=== PATIENT | male | born 1960 | race African-American/Black ===

== ENCOUNTER 2018-09-06 17:46 | Inpatient (IN) | payer OTHER ==
[~2018-09-06] VITALS: Ht 185.4 cm; Wt 86.2 kg
--- NOTE | 2018-09-06 17:43 | Emergency Room Report ---
History of Present Illness General Source: Patient, EMS Present Illness HPI Patient is a 58-year-old male brought in by EMS after increased shortness of breath. Patient a prior history of CHF and had recently been discharged from [facility]. Patient was noted to have been anticoagulated with Eliquis. He had been discharged with 80 mg of Lasix. Patient had been noted to have increased shortness of breath since last night. He had been discharged from the hospital on 31 August.Patient denies prior history of stroke. He was noted to be increased short of breath for the past 3 days. Allergies: Coded Allergies: No Known Allergies (Unverified , 09/06/18) Patient History Past Medical History: see triage record Reviewed Nursing Documentation: PMH: Agreed; PSxH: Agreed Review of Systems All Other Systems: negative except mentioned in HPI Physical Exam Sp02 EP Interpretation: reviewed, normal General Appearance: normal inspection, alert, GCS 15, moderate distress, Chronically Ill Head: atraumatic ENT: normal ENT inspection, hearing grossly normal, normal voice Neck: normal inspection, full range of motion, supple, no bony tend Respiratory: normal inspection, no retraction, no wheezing, rales Cardiovascular #1: tachycardia, edema Gastrointestinal: normal inspection, normal bowel sounds, non tender, soft, no guarding, no hernia Genitourinary: no CVA tenderness Musculoskeletal: normal inspection, back normal, normal range of motion Neurologic: normal inspection, alert, oriented x3, responsive, speech normal Psychiatric: normal inspection, judgement/insight normal, mood/affect normal Skin: normal inspection, normal color, no rash Medical Decision Making Diagnostic Impression: Primary Impression: Acute exacerbation of CHF (congestive heart failure) Additional Impression: Atrial fibrillation ER Course Patient presented for shortness of breath. Differential included but was not limited to anemia, pneumonia, pneumothorax, myocardial infarction, pericardial effusion, congestive heart failure, acidosis because of complexity of patient's case laboratory testing and imaging studies were ordered.. Atrial fibrillation with rapid ventricular response and a bundle branch block. Patient was given medications including digoxin to help assist with rate control. He was also given IV Lasix. Patient was noted to be somewhat improved in terms of his tachycardia. Laboratory testing was notable for markedly elevated BNP. His chest x-ray interpreted by me showed cardiomegaly with status post sternotomy small right pleural effusion was noted. Patient was noted to have some improvement. Dr. Dillon was contacted for inpatient management due to panel physician Labs Test 09/06/18 18:15 09/06/18 18:40 White Blood Count 4.9 K/UL (4.8-10.8) Red Blood Count 5.43 M/UL (4.70-6.10) Hemoglobin 12.9 G/DL (14.2-18.0) Hematocrit 40.8 % (42.0-52.0) Mean Corpuscular Volume 75 FL (80-99) Mean Corpuscular Hemoglobin 23.7 PG (27.0-31.0) Mean Corpuscular Hemoglobin Concent 31.6 G/DL (32.0-36.0) Red Cell Distribution Width 20.8 % (11.6-14.8) Platelet Count 127 K/UL (150-450) Mean Platelet Volume 7.5 FL (6.5-10.1) Neutrophils (%) (Auto) 50.8 % (45.0-75.0) Lymphocytes (%) (Auto) 33.9 % (20.0-45.0) Monocytes (%) (Auto) 13.5 % (1.0-10.0) Eosinophils (%) (Auto) 0.5 % (0.0-3.0) Basophils (%) (Auto) 1.3 % (0.0-2.0) D-Dimer 4.28 mg/L FEU (0.00-0.49) Sodium Level 131 MMOL/L (136-145) Potassium Level 4.2 MMOL/L (3.5-5.1) Chloride Level 94 MMOL/L (98-107) Carbon Dioxide Level 25 MMOL/L (21-32) Anion Gap 12 mmol/L (5-15) Blood Urea Nitrogen 24 mg/dL (7-18) Creatinine 1.7 MG/DL (0.55-1.30) Estimat Glomerular Filtration Rate 50.3 mL/min (>60) Glucose Level 67 MG/DL (74-106) Lactic Acid Level 6.40 mmol/L (0.4-2.0) Calcium Level 10.0 MG/DL (8.5-10.1) Total Bilirubin 5.9 MG/DL (0.2-1.0) Direct Bilirubin 3.7 MG/DL (0.0-0.3) Aspartate Amino Transf (AST/SGOT) 370 U/L (15-37) Alanine Aminotransferase (ALT/SGPT) 333 U/L (12-78) Alkaline Phosphatase 199 U/L (46-116) Total Creatine Kinase 216 U/L (26-308) Creatine Kinase MB 1.4 NG/ML (0.0-3.6) Creatine Kinase MB Relative Index 0.6 Troponin I 0.024 ng/mL (0.000-0.056) Pro-B-Type Natriuretic Peptide 6247 pg/mL (0-125) Total Protein 8.7 G/DL (6.4-8.2) Albumin 3.9 G/DL (3.4-5.0) Globulin 4.8 g/dL Albumin/Globulin Ratio 0.8 (1.0-2.7) Urine Opiates Screen Negative (NEGATIVE) Urine Barbiturates Screen Negative (NEGATIVE) Phencyclidine (PCP) Screen Negative (NEGATIVE) Urine Amphetamines Screen Negative (NEGATIVE) Urine Benzodiazepines Screen Negative (NEGATIVE) Urine Cocaine Screen Negative (NEGATIVE) Urine Marijuana (THC) Screen Positive (NEGATIVE) EKG Diagnostic Results Rate: tachycardiac ST Segments: no acute changes Rhythm Strip Diag. Results EP Interpretation: yes Rhythm: no PVC's, no ectopy, other - atrial fibrillation Status: improved Disposition: ADMITTED INPATIENT Condition: Rufus Fischer MD September 06, 2018 17:43
[2018-09-06 17:47] VITALS: BP 118/90
--- NOTE | 2018-09-06 17:50 | NUR ---
ED Nurse Note: Patient biba from home c/o dyspnea and SOB for the past 3 days, patietn state that he was recently discharged from [facility] 3 days prior here, at time of arrival patient's EKG showed Afib with RVR, Dr. Kiser notified and aware, Given verbal order for digoxin and furosemide, 2 IV started, right forearm 18 gauge and left forearm 20 gauge. patient is alert and oriented x4, able to bare weight however not able to ambulate, denies any pain at this moment ,just complains of SOB
[2018-09-06] MEDS ORDERED: AMLODIPINE BESYL5 MG ORAL (17:58)
[2018-09-06] MEDS ORDERED: COLACE100 MG ORAL (17:58)
[2018-09-06] MEDS ORDERED: CARVEDILOL3.125 MG ORAL (17:58)
[2018-09-06] MEDS ORDERED: ASPIRIN-LOW81 MG ORAL (17:58)
[2018-09-06] MEDS ORDERED: LOSARTAN POTASS25 MG ORAL (17:58)
[2018-09-06] MEDS ORDERED: FAMOTIDINE20 MG ORAL (17:58)
[2018-09-06] MEDS ORDERED: ELIQUIS5 MG PO (17:58)
[2018-09-06] MEDS ORDERED: K-TAB ER20 MEQ PO (17:58)
[2018-09-06] MEDS ORDERED: Digoxin 0.5mg/2ml Inj IVP ONE (18:00)
[2018-09-06 18:36] LABS: BASOPHILS % (AUTO) 1.3 % (0.0-2.0); EOSINOPHILS % (AUTO) 0.5 % (0.0-3.0); HEMATOCRIT 40.8 % (42.0-52.0); HEMOGLOBIN 12.9 G/DL (14.2-18.0); LYMPHOCYTES % (AUTO) 33.9 % (20.0-45.0); MEAN CORPUSCULAR VOLUME 75 FL (80-99); MONOCYTES % (AUTO) 13.5 % (1.0-10.0); NEUTROPHILS % (AUTO) 50.8 % (45.0-75.0); PLATELET COUNT 127 K/UL (150-450); RED BLOOD COUNT 5.43 M/UL (4.70-6.10); RED CELL DISTRIBUTION WIDTH 20.8 % (11.6-14.8); WHITE BLOOD COUNT 4.9 K/UL (4.8-10.8)
[2018-09-06 18:53] LABS: ANION GAP 12 mmol/L (5-15); BLOOD UREA NITROGEN 24 mg/dL (7-18); CARBON DIOXIDE 25 MMOL/L (21-32); CHLORIDE 94 MMOL/L (98-107); CREATININE 1.7 MG/DL (0.55-1.30); POTASSIUM 4.2 MMOL/L (3.5-5.1); SODIUM 131 MMOL/L (136-145)
--- NOTE | 2018-09-06 18:55 | Diagnostic Imaging Report ---
EXAM: XR Chest, 1 View CLINICAL HISTORY: SOB TECHNIQUE: Frontal view of the chest. COMPARISON: none FINDINGS: Lungs: Unremarkable. No consolidation. Pleural space: Small right pleural effusion Heart: Marked cardiomegaly and small right pleural effusion. Mediastinum: Unremarkable. Bones/joints: Prior sternotomy. IMPRESSION: Marked cardiomegaly and small right pleural effusion. Otherwise no acute cardiopulmonary process. If a pericardial effusion is suspected, echocardiography could be considered in further evaluation.
--- NOTE | 2018-09-06 19:02 | NUR ---
ED Nurse Note: Patient refused CRE and VRE screening
--- NOTE | 2018-09-06 19:06 | NUR ---
HAND-OFF: Report given to Willow DURON RN.
[2018-09-06 19:08] LABS: ALANINE AMINOTRANSFERASE 333 U/L (12-78); ALBUMIN 3.9 G/DL (3.4-5.0); ALBUMIN/GLOBULIN RATIO 0.8 (1.0-2.7); ALKALINE PHOSPHATASE 199 U/L (46-116); ASPARTATE AMINO TRANSFERASE 370 U/L (15-37); BILIRUBIN,TOTAL 5.9 MG/DL (0.2-1.0); CKMB 1.4 NG/ML (0.0-3.6); CREATINE KINASE 216 U/L (26-308)
[2018-09-06 19:10] LABS: BILIRUBIN,DIRECT 3.7 MG/DL (0.0-0.3)
--- NOTE | 2018-09-06 19:10 | NUR ---
ED Nurse Note: Report received from Kasia Goss RN. Pt A/Ox4, resting comfortably. Showing no signs of acute distress. Awaiting transfer to [facility]. VSS.
--- NOTE | 2018-09-06 19:30 | NUR ---
ED Nurse Note: Pt refused VRE/CRE swabbing
--- NOTE | 2018-09-06 20:30 | NUR ---
ED Nurse Note: Pt transferred to SDU floor. Hand-off report given to KATHARINA Mae. Pt A/Ox4, two patent IV sites present and asymptomatic. Pt showing no signs of acute distress. VSS aside from a-fib. All belongings taken with patient along with belongings list.
[2018-09-06 20:45] VITALS: BP 140/95
--- NOTE | 2018-09-06 20:45 | NUR ---
NURSE NOTES: Received report from Dalia RN, pt. in bed awake- A/O x's4-able to make needs known- pt. stating he just wants to be left alone and wants to sleep, VS taken, full body assessment done- skin intact, cardiac technician placed, pt. denies pain, bed in lowest position and call light within easy reach, bed alarm on and safety brakes engaged, urinal at bed side and within easy reach, pt. appears to be sating well on 2L NC at 97%-no distress noted, pt. has 2 IV sites both intact and patent- RFA 18G and LFA 20G, pt. stated he has only one history which is CHF- other history in chart for DM, HTN and Anemia he is denying he has history of. Safety measures continued, will continue with plan of care.
[2018-09-06 20:52] VITALS: BP 140/95
--- NOTE | 2018-09-06 20:59 | NUR ---
NURSE NOTES: Left msg for DR. Dillon for admitting orders- waiting for call back from doctor.
--- NOTE | 2018-09-06 21:37 | NUR ---
NURSE NOTES: Left second msg for DR. Dillon again for admitting orders- waiting for call back from doctor.
--- NOTE | 2018-09-06 21:58 | NUR ---
NURSE NOTES: left another message for DR. Dillon-for admitting orders- waiting for call back from doctor.
--- NOTE | 2018-09-06 22:07 | NUR ---
NURSE NOTES: per DR. Dillon to call DR. Kern for orders- called DR. Kern and gave hm patients history and admission reason and lab results for lactic acid and glucose and chest x-ray results- orders given to continue home medications and other orders given that I will carry out- Orders carried out.
[2018-09-06] MEDS ORDERED: Morphine Sulfate 2mg/ml Inj(IV/IM USE ONLY) IVP PRN (22:30)
[2018-09-07] VITALS: BP 136/85
[2018-09-07 04:00] VITALS: BP 139/79
[2018-09-07 05:35] LABS: BASOPHILS % (AUTO) 1.2 % (0.0-2.0); HEMATOCRIT 37.8 % (42.0-52.0); HEMOGLOBIN 12.1 G/DL (14.2-18.0); LYMPHOCYTES % (AUTO) 23.3 % (20.0-45.0); MEAN CORPUSCULAR VOLUME 76 FL (80-99); MONOCYTES % (AUTO) 15.2 % (1.0-10.0); NEUTROPHILS % (AUTO) 59.4 % (45.0-75.0); PLATELET COUNT 127 K/UL (150-450); RED CELL DISTRIBUTION WIDTH 21.6 % (11.6-14.8); WHITE BLOOD COUNT 4.1 K/UL (4.8-10.8)
[2018-09-07 05:49] LABS: ANION GAP 9 mmol/L (5-15); BLOOD UREA NITROGEN 24 mg/dL (7-18); CALCIUM 9.5 MG/DL (8.5-10.1); CARBON DIOXIDE 29 MMOL/L (21-32); CHLORIDE 96 MMOL/L (98-107); CREATININE 1.4 MG/DL (0.55-1.30); POTASSIUM 3.6 MMOL/L (3.5-5.1); SODIUM 133 MMOL/L (136-145)
--- NOTE | 2018-09-07 06:06 | NUR ---
NURSE NOTES: per pt. he would like something for cough- called DR. Kern - per doctor to put order in for DuoNeb PRN SOB Q6HRS, and Robitussin 10mls PRN cough Q6HRS- orders carried out. Also notified doctor of Troponin trending up- just orders to have DR. Velasquez follow up.
[2018-09-07] MEDS ORDERED: guaiFENesin 100mg/5ml Liq ud ORAL PRN ×2 (06:15→06:30)
[2018-09-07] MEDS: guaiFENesin 100mg/5ml Liq ud ORAL PRN ×3 (06:28→18:36)
[2018-09-07] MEDS: Albuterol/Ipratropium 3ml neb HHN PRN (06:39)
--- NOTE | 2018-09-07 07:04 | NUR ---
HAND-OFF: Report given to Abdi RN, pt. remains stable and no signs of distress noted. Aware to have DR. Velasquez f/u regarding Troponin trending up.
--- NOTE | 2018-09-07 07:06 | NUR ---
NURSE NOTES: received patient report from karan poe. patient is on bed awake. not in acute distress. aox4. skin is intact. on 2 li nc. bed is low and locked for safety. will follow plan of care.
[2018-09-07 08:00] VITALS: BP 117/75
[2018-09-07] MEDS: Losartan 25mg tab ORAL SCH (08:09)
[2018-09-07] MEDS: Aspirin EC 81mg tab ORAL SCH (08:09)
[2018-09-07] MEDS: Eliquis 5mg tablet ORAL SCH ×2 (08:10→17:13)
[2018-09-07] MEDS: Docusate 100mg cap ORAL SCH ×2 (08:10→17:13)
[2018-09-07] MEDS: Furosemide 40mg tab ORAL SCH (08:10)
--- NOTE | 2018-09-07 10:05 | History & Physical ---
History and Physical History & Physicial History and Physical HPI Patient is a 58-year-old man with a prior history of Congestive Heart Failure and had recently been discharged from [facility]. He has a history of atrial fibrillation and is on Eliquis. He had been discharged with 80 mg of Lasix. He complains of increased shortness of breath since discharge. He had been discharged from the hospital on 31 August.Patient denies prior history of stroke. He was noted to be increased short of breath for the past 3 days. Allergies: No Known Allergies Past Medical History: CHF, afib All Other Systems: negative except mentioned in HPI Physical Exam Vital Signs Noted General Appearance: normal inspection, alert, GCS 15, no current distress, Chronically Ill appearing Head: atraumatic ENT: normal ENT inspection, hearing grossly normal, normal voice Neck: normal inspection, full range of motion, supple, no bony tend Respiratory: normal inspection, no retraction, no wheezing, rales Cardiovascular: HS1, HS2, afib, , edema Gastrointestinal: normal inspection, normal bowel sounds, non tender, soft, no guarding, no hernia Genitourinary: no CVA tenderness Musculoskeletal: normal inspection, back normal, normal range of motion Neurologic: normal inspection, alert, oriented x3, responsive, speech normal Psychiatric: normal inspection, judgement/insight normal, mood/affect normal Skin: normal inspection, normal color, no rash Impression: Acute exacerbation of congestive heart failure Atrial fibrillation No acute changes on EKG, negative Troponin Plan: Lasix Afterload reduction Digoxin Monigtor Labs PPX Eliquis Cardiology Consult O2 PRN Labs Test 09/06/18 18:15 09/06/18 18:40 White Blood Count 4.9 K/UL (4.8-10.8) Red Blood Count 5.43 M/UL (4.70-6.10) Hemoglobin 12.9 G/DL (14.2-18.0) Hematocrit 40.8 % (42.0-52.0) Mean Corpuscular Volume 75 FL (80-99) Mean Corpuscular Hemoglobin 23.7 PG (27.0-31.0) Mean Corpuscular Hemoglobin Concent 31.6 G/DL (32.0-36.0) Red Cell Distribution Width 20.8 % (11.6-14.8) Platelet Count 127 K/UL (150-450) Mean Platelet Volume 7.5 FL (6.5-10.1) Neutrophils (%) (Auto) 50.8 % (45.0-75.0) Lymphocytes (%) (Auto) 33.9 % (20.0-45.0) Monocytes (%) (Auto) 13.5 % (1.0-10.0) Eosinophils (%) (Auto) 0.5 % (0.0-3.0) Basophils (%) (Auto) 1.3 % (0.0-2.0) D-Dimer 4.28 mg/L FEU (0.00-0.49) Sodium Level 131 MMOL/L (136-145) Potassium Level 4.2 MMOL/L (3.5-5.1) Chloride Level 94 MMOL/L (98-107) Carbon Dioxide Level 25 MMOL/L (21-32) Anion Gap 12 mmol/L (5-15) Blood Urea Nitrogen 24 mg/dL (7-18) Creatinine 1.7 MG/DL (0.55-1.30) Estimat Glomerular Filtration Rate 50.3 mL/min (>60) Glucose Level 67 MG/DL (74-106) Lactic Acid Level 6.40 mmol/L (0.4-2.0) Calcium Level 10.0 MG/DL (8.5-10.1) Total Bilirubin 5.9 MG/DL (0.2-1.0) Direct Bilirubin 3.7 MG/DL (0.0-0.3) Aspartate Amino Transf (AST/SGOT) 370 U/L (15-37) Alanine Aminotransferase (ALT/SGPT) 333 U/L (12-78) Alkaline Phosphatase 199 U/L (46-116) Total Creatine Kinase 216 U/L (26-308) Creatine Kinase MB 1.4 NG/ML (0.0-3.6) Creatine Kinase MB Relative Index 0.6 Troponin I 0.024 ng/mL (0.000-0.056) Pro-B-Type Natriuretic Peptide 6247 pg/mL (0-125) Total Protein 8.7 G/DL (6.4-8.2) Albumin 3.9 G/DL (3.4-5.0) Globulin 4.8 g/dL Albumin/Globulin Ratio 0.8 (1.0-2.7) Urine Opiates Screen Negative (NEGATIVE) Urine Barbiturates Screen Negative (NEGATIVE) Phencyclidine (PCP) Screen Negative (NEGATIVE) Urine Amphetamines Screen Negative (NEGATIVE) Urine Benzodiazepines Screen Negative (NEGATIVE) Urine Cocaine Screen Negative (NEGATIVE) Urine Marijuana (THC) Screen Positive (NEGATIVE) EKG: Rate: tachycardiac - atrial fibrillation ST Segments: no acute changes CXR: Cardiomegaly, small right pleural effusion Haris Kern MD September 07, 2018 10:05
--- NOTE | 2018-09-07 11:19 | NUR ---
CASE MANAGEMENT: INITIAL REVIEW 09/06/2018 58 YO M BIBA FROM HOME CC: DYSPNEA PMHx: CHF. SI:ACUTE CHF. A FIB W/ RVR. T 98.1 HR 64 RR 24 B/P 118/90 SATS 98% ON RA NA 131 CL 94 BUN 24 CR 1.7 GLU 67 TBILI 5.9 DBILI 3.7 AST 370 ALT 333 ALP 199 BNP 6247 UTOX(+THC) IS: ASA PO X1 LASIX IV X1 DIGOXIN IV X1 EKG: Rate: tachycardiac - atrial fibrillation. ST Segments: no acute changes CXR: Cardiomegaly, small right pleural effusion. PATIENT ADMITTED TO SDU 09/06/2018 @ 1824 DCP: PATIENT TO BE DISCHARGED TO HOME ONCE MEDICALLY CLEARED. 09/07/2018 SI:ACUTE CHF. A FIB W/ RVR T 97.7 HR 67 RR 20 B/P 117/75 SATS 98% ON 2L/NC WBC 4.1 NA 133 CL 96 BUN 24 CR 1.4 GLU 113 IS:COREG PO Q12H PEPCID PO BID ELIQUIS PO BID NORVASC PO QD ASA PO QD COZAAR PO QD K DUR PO QD LANOXIN PO QD LASIX PO QD SDU
[2018-09-07 12:00] VITALS: BP 148/103
[2018-09-07] MEDS: Thiamine 100mg tab ORAL SCH (13:00)
[2018-09-07 16:00] VITALS: BP 140/94
--- NOTE | 2018-09-07 18:58 | NUR ---
NURSE NOTES: HAND-OFF: Report given to karan poe.
--- NOTE | 2018-09-07 19:00 | NUR ---
NURSE NOTES: reportb given to karan poe
--- NOTE | 2018-09-07 19:07 | NUR ---
NURSE NOTES: Received report from Saba POSADAS, pt. in bed awake- A/O x's4-able to make needs known, rotary bar operator on, pt. denies pain, bed in lowest position and call light within easy reach, bed alarm on and safety brakes engaged, urinal at bed side and within easy reach, Commode also at bedside- pt. aware to ask for assist as he mentioned his gait is weak and not steady when ambulating, all needs attended to, pt. appears to be sating well on 2L NC at 99%-no distress noted, pt. has 2 IV sites both intact and patent- RFA 18G and LFA 20G, Safety measures continued, will continue with plan of care.
[2018-09-07 20:00] VITALS: BP 147/75
[2018-09-08] VITALS: BP 136/75
--- NOTE | 2018-09-08 | Cardiology Progress Note ---
Objective Last 24 Hour Vital Signs Date Time Temp Pulse Resp B/P (MAP) Pulse Ox O2 Delivery O2 Flow Rate FiO2 09/07/18 20:02 75 147/75 09/07/18 20:00 84 09/07/18 20:00 2.0 09/07/18 20:00 98.0 75 20 147/75 (99) 98 09/07/18 20:00 Nasal Cannula 2.0 09/07/18 18:45 74 18 Nasal Cannula 2.0 28 09/07/18 18:45 Nasal Cannula 2.0 28 09/07/18 18:45 96 Nasal Cannula 2.0 28 09/07/18 16:00 2.0 09/07/18 16:00 Nasal Cannula 2.0 09/07/18 16:00 97.7 77 22 140/94 (109) 97 09/07/18 15:22 86 09/07/18 12:00 97.3 105 23 148/103 (118) 100 09/07/18 12:00 75 09/07/18 12:00 2.0 09/07/18 12:00 Nasal Cannula 2.0 09/07/18 09:00 2.0 09/07/18 08:11 67 09/07/18 08:09 117/75 09/07/18 08:09 67 117/75 09/07/18 08:09 67 117/75 09/07/18 08:00 84 09/07/18 08:00 Nasal Cannula 2.0 09/07/18 08:00 97.7 67 20 117/75 (89) 98 09/07/18 06:49 82 18 96 Room Air 2.0 09/07/18 06:47 94 Nasal Cannula 2.0 09/07/18 06:46 2.0 09/07/18 06:39 81 18 93 Nasal Cannula 2.0 09/07/18 06:36 81 18 Nasal Cannula 2.0 09/07/18 04:00 87 09/07/18 04:00 98.7 82 18 139/79 (99) 98 82 09/07/18 04:00 Nasal Cannula 2.0 09/07/18 04:00 2.0 Intake and Output 09/07/18 09/08/18 18:59 06:59 Intake Total 750 ml Output Total 850 ml Balance -100 ml Intake Oral 750 ml Output Urine Total 850 ml # Voids 4 # Bowel Movements 3 1 Laboratory Tests Test 09/07/18 05:15 09/07/18 17:00 09/07/18 19:50 White Blood Count 4.1 K/UL (4.8-10.8) L Red Blood Count 5.00 M/UL (4.70-6.10) Hemoglobin 12.1 G/DL (14.2-18.0) L Hematocrit 37.8 % (42.0-52.0) L Mean Corpuscular Volume 76 FL (80-99) L Mean Corpuscular Hemoglobin 24.2 PG (27.0-31.0) L Mean Corpuscular Hemoglobin Concent 32.0 G/DL (32.0-36.0) Red Cell Distribution Width 21.6 % (11.6-14.8) H Platelet Count 127 K/UL (150-450) L Mean Platelet Volume 8.1 FL (6.5-10.1) Neutrophils (%) (Auto) 59.4 % (45.0-75.0) Lymphocytes (%) (Auto) 23.3 % (20.0-45.0) Monocytes (%) (Auto) 15.2 % (1.0-10.0) H Eosinophils (%) (Auto) 1.0 % (0.0-3.0) Basophils (%) (Auto) 1.2 % (0.0-2.0) Sodium Level 133 MMOL/L (136-145) L Potassium Level 3.6 MMOL/L (3.5-5.1) Chloride Level 96 MMOL/L (98-107) L Carbon Dioxide Level 29 MMOL/L (21-32) Anion Gap 9 mmol/L (5-15) Blood Urea Nitrogen 24 mg/dL (7-18) H Creatinine 1.4 MG/DL (0.55-1.30) H Estimat Glomerular Filtration Rate > 60 mL/min (>60) Glucose Level 113 MG/DL (74-106) H Calcium Level 9.5 MG/DL (8.5-10.1) Troponin I 0.032 ng/mL (0.000-0.056) Digoxin Level 0.8 NG/ML (0.5-2.0) Lactic Acid Level 2.50 mmol/L (0.4-2.0) H 1.40 mmol/L (0.66-2.22) Fracisco Velasquez MD September 08, 2018 00:00
[2018-09-08] MEDS: Albuterol/Ipratropium 3ml neb HHN PRN (00:39)
[2018-09-08] MEDS: guaiFENesin 100mg/5ml Liq ud ORAL PRN ×2 (01:19→17:30)
[2018-09-08 04:00] VITALS: BP 131/81
--- NOTE | 2018-09-08 06:59 | NUR ---
HAND-OFF: Report given to Tova RN, pt. remains stable and no signs of distress noted.
[2018-09-08 08:00] VITALS: BP 139/87
--- NOTE | 2018-09-08 08:04 | NUR ---
NURSE NOTES: Received pt from KATHARINA Mae in stable condition. Pt is awake, AAO x4, on 2L O2 via NC. Pt has a RFA 20g IV and LFA 18g IV. No skin alterations noted at this time. Bed is in lowest position with alarm on, side rails up x 2, call light within reach. Will continue to monitor pt. Addendum: 09/08/18 at 0806 by Lainey Bernardo RN Correct Time: 0700
--- NOTE | 2018-09-08 08:25 | General Progress Note ---
Assessment/Plan Assessment/Plan: Acute exacerbation of congestive heart failure Atrial fibrillation pleural effusion ARF thrombocytopenia PLAN check echo follow up cxr cards evaluation stabilize impression, plan, and exam edited and reviewed in detail care discussed with RN Subjective Allergies: Coded Allergies: No Known Allergies (Unverified , 09/06/18) Subjective care noted Objective Last 24 Hour Vital Signs Date Time Temp Pulse Resp B/P (MAP) Pulse Ox O2 Delivery O2 Flow Rate FiO2 09/08/18 04:00 2.0 09/08/18 04:00 98.3 74 18 131/81 (98) 98 09/08/18 04:00 Nasal Cannula 2.0 09/08/18 04:00 87 09/08/18 00:50 74 18 98 Nasal Cannula 2.0 28 09/08/18 00:39 72 18 97 Nasal Cannula 2.0 28 09/08/18 00:00 Nasal Cannula 2.0 09/08/18 00:00 78 09/08/18 00:00 98.1 70 20 136/75 (95) 97 09/08/18 00:00 2.0 09/07/18 20:02 75 147/75 09/07/18 20:00 84 09/07/18 20:00 2.0 09/07/18 20:00 98.0 75 20 147/75 (99) 98 09/07/18 20:00 Nasal Cannula 2.0 09/07/18 18:45 74 18 Nasal Cannula 2.0 28 09/07/18 18:45 Nasal Cannula 2.0 28 09/07/18 18:45 96 Nasal Cannula 2.0 28 09/07/18 16:00 2.0 09/07/18 16:00 Nasal Cannula 2.0 09/07/18 16:00 97.7 77 22 140/94 (109) 97 09/07/18 15:22 86 09/07/18 12:00 97.3 105 23 148/103 (118) 100 09/07/18 12:00 75 09/07/18 12:00 2.0 09/07/18 12:00 Nasal Cannula 2.0 09/07/18 09:00 2.0 Intake and Output 09/07/18 09/08/18 19:00 07:00 Intake Total 750 ml Output Total 850 ml 575 ml Balance -100 ml -575 ml Intake Oral 750 ml Output Urine Total 850 ml 575 ml # Voids 4 3 # Bowel Movements 3 3 Laboratory Tests 09/07/18 17:00: Lactic Acid Level 2.50H 09/07/18 19:50: Lactic Acid Level 1.40 Height (Feet): 6 Height (Inches): 1.00 Weight (Pounds): 181 Objective WDWN NAD reduced breath sounds bilaterally without rhonchi or wheeze [id number] without MRG; distant NABS nontender no HSM no CC edema nonfocal Bebeto Dillon MD September 08, 2018 08:25
[2018-09-08] MEDS: Docusate 100mg cap ORAL SCH ×2 (09:00→17:30)
[2018-09-08] MEDS: Losartan 25mg tab ORAL SCH (09:06)
[2018-09-08] MEDS: Aspirin EC 81mg tab ORAL SCH (09:06)
[2018-09-08] MEDS: Thiamine 100mg tab ORAL SCH (09:06)
[2018-09-08] MEDS: Eliquis 5mg tablet ORAL SCH (09:07)
[2018-09-08] MEDS: Furosemide 40mg tab ORAL SCH (09:07)
[2018-09-08 09:37] LABS: BASOPHILS % (AUTO) 1.1 % (0.0-2.0); EOSINOPHILS % (AUTO) 2.6 % (0.0-3.0); HEMATOCRIT 38.2 % (42.0-52.0); HEMOGLOBIN 12.1 G/DL (14.2-18.0); LYMPHOCYTES % (AUTO) 26.4 % (20.0-45.0); MEAN CORPUSCULAR VOLUME 76 FL (80-99); MONOCYTES % (AUTO) 15.8 % (1.0-10.0); NEUTROPHILS % (AUTO) 54.2 % (45.0-75.0); PLATELET COUNT 125 K/UL (150-450); RED BLOOD COUNT 5.04 M/UL (4.70-6.10); RED CELL DISTRIBUTION WIDTH 21.4 % (11.6-14.8); WHITE BLOOD COUNT 3.8 K/UL (4.8-10.8)
--- NOTE | 2018-09-08 09:45 | NUR ---
*-* NO INSURANCE INFORMATION IN THE BAR UNABLE TO SEND CLINICALS AND REVIEWS *-*
[2018-09-08 10:03] LABS: ANION GAP 9 mmol/L (5-15); BLOOD UREA NITROGEN 21 mg/dL (7-18); CARBON DIOXIDE 28 MMOL/L (21-32); CHLORIDE 95 MMOL/L (98-107); CREATININE 1.5 MG/DL (0.55-1.30); POTASSIUM 3.5 MMOL/L (3.5-5.1); SODIUM 132 MMOL/L (136-145)
--- NOTE | 2018-09-08 11:37 | NUR ---
NURSE NOTES: Left message for Dr. Dillon regarding troponin results. Awaiting call back.
[2018-09-08 12:00] VITALS: BP 111/68
--- NOTE | 2018-09-08 12:58 | Cardiology Progress Note ---
Assessment/Plan Assessment/Plan The patient is seen and examined, full consult note is dictated. Objective Last 24 Hour Vital Signs Date Time Temp Pulse Resp B/P (MAP) Pulse Ox O2 Delivery O2 Flow Rate FiO2 09/08/18 12:00 97.4 71 20 111/68 (82) 99 09/08/18 12:00 67 09/08/18 12:00 2.0 09/08/18 12:00 Nasal Cannula 2.0 09/08/18 09:07 79 09/08/18 09:06 139/87 09/08/18 09:06 79 139/87 09/08/18 09:06 79 139/87 09/08/18 08:26 95 Nasal Cannula 2.0 28 09/08/18 08:26 Nasal Cannula 2.0 09/08/18 08:25 76 20 Nasal Cannula 2.0 09/08/18 08:00 2.0 09/08/18 08:00 82 09/08/18 08:00 Nasal Cannula 2.0 09/08/18 08:00 96.6 79 18 139/87 (104) 97 09/08/18 04:00 2.0 09/08/18 04:00 98.3 74 18 131/81 (98) 98 09/08/18 04:00 Nasal Cannula 2.0 09/08/18 04:00 87 09/08/18 00:50 74 18 98 Nasal Cannula 2.0 28 09/08/18 00:39 72 18 97 Nasal Cannula 2.0 28 09/08/18 00:00 Nasal Cannula 2.0 09/08/18 00:00 78 09/08/18 00:00 98.1 70 20 136/75 (95) 97 09/08/18 00:00 2.0 09/07/18 20:02 75 147/75 09/07/18 20:00 84 09/07/18 20:00 2.0 09/07/18 20:00 98.0 75 20 147/75 (99) 98 09/07/18 20:00 Nasal Cannula 2.0 09/07/18 18:45 74 18 Nasal Cannula 2.0 28 09/07/18 18:45 Nasal Cannula 2.0 28 09/07/18 18:45 96 Nasal Cannula 2.0 28 09/07/18 16:00 2.0 09/07/18 16:00 Nasal Cannula 2.0 09/07/18 16:00 97.7 77 22 140/94 (109) 97 09/07/18 15:22 86 Intake and Output 09/07/18 09/08/18 19:00 07:00 Intake Total 750 ml Output Total 850 ml 575 ml Balance -100 ml -575 ml Intake Oral 750 ml Output Urine Total 850 ml 575 ml # Voids 4 3 # Bowel Movements 3 3 Laboratory Tests Test 09/07/18 17:00 09/07/18 19:50 09/08/18 09:15 Lactic Acid Level 2.50 mmol/L (0.4-2.0) H 1.40 mmol/L (0.66-2.22) White Blood Count 3.8 K/UL (4.8-10.8) L Red Blood Count 5.04 M/UL (4.70-6.10) Hemoglobin 12.1 G/DL (14.2-18.0) L Hematocrit 38.2 % (42.0-52.0) L Mean Corpuscular Volume 76 FL (80-99) L Mean Corpuscular Hemoglobin 24.1 PG (27.0-31.0) L Mean Corpuscular Hemoglobin Concent 31.8 G/DL (32.0-36.0) L Red Cell Distribution Width 21.4 % (11.6-14.8) H Platelet Count 125 K/UL (150-450) L Mean Platelet Volume 8.0 FL (6.5-10.1) Neutrophils (%) (Auto) 54.2 % (45.0-75.0) Lymphocytes (%) (Auto) 26.4 % (20.0-45.0) Monocytes (%) (Auto) 15.8 % (1.0-10.0) H Eosinophils (%) (Auto) 2.6 % (0.0-3.0) Basophils (%) (Auto) 1.1 % (0.0-2.0) Sodium Level 132 MMOL/L (136-145) L Potassium Level 3.5 MMOL/L (3.5-5.1) Chloride Level 95 MMOL/L (98-107) L Carbon Dioxide Level 28 MMOL/L (21-32) Anion Gap 9 mmol/L (5-15) Blood Urea Nitrogen 21 mg/dL (7-18) H Creatinine 1.5 MG/DL (0.55-1.30) H Estimat Glomerular Filtration Rate 58.1 mL/min (>60) Glucose Level 174 MG/DL (74-106) H Calcium Level 9.0 MG/DL (8.5-10.1) Troponin I 0.025 ng/mL (0.000-0.056) Microbiology Date/Time Source Procedure Growth Status 09/06/18 18:20 Blood Blood Culture - Preliminary NO GROWTH AFTER 24 HOURS Resulted 09/06/18 18:05 Blood Blood Culture - Preliminary NO GROWTH AFTER 24 HOURS Resulted 09/06/18 19:30 Nasal Nares MRSA Culture - Final NO METHICILLIN RESISTANT STAPH AUREUS... Complete 09/07/18 02:00 Urine,Clean Catch Urine Culture - Preliminary Mixed Gram Positive Organism Resulted Fracisco Velasquez MD September 08, 2018 12:58
--- NOTE | 2018-09-08 13:34 | NUR ---
[employer] SI:ACUTE CHF. A FIB W/ RVR. VS: BP 111/68, P 82, T 96.6, RR 20, SpO2 95 on 2.0L O2 NC WBC 3.8, H&H 12.1/38.2, Na 132, BUN 21, CR 1.5 IS:ELIQUIS 5mG DIGOXIN 5mg NORVASC 5mg COREG 3.125mg COZAAR 25mg K-DUR 20meq ALBUTEROL 3ml HHN SDU STATUS
[2018-09-08 16:00] VITALS: BP 132/74
[2018-09-08] MEDS: Eliquis 2.5mg tablet ORAL SCH (17:30)
--- NOTE | 2018-09-08 18:34 | Coder Physician Query ---
--------- THIS DOCUMENT IS A PERMANENT PART OF THE MEDICAL RECORD --------- PLEASE COMPLETE DOCUMENT BEFORE SIGNING Dear Dr. Jaeger Date: __09/08/18 [facility]/CDS Name: ___Servando [facility]/CDS Phone No.: Exercise your independent professional judgment when responding to the query. Questions asked do not imply a particular answer is desired or expected. We greatly appreciate your clarification on this issue. CLINICAL DOCUMENTATION STATES: 58-year-old man with a prior history of Congestive Heart Failure, complains of increased shortness of breath. 09/07 H&P: PHYSICAL EXAM: Cardiovascular: HS1, HS2, afib, , edema Impression: Acute exacerbation of congestive heart failure Atrial fibrillation No acute changes on EKG, negative Troponin CLINICAL FINDINGS SHOW: Lactic Acid: (09/06) 6.40,5.50 (09/07) 2.50 Please respond to the following question: Is there a diagnosis specific to these symptoms or values? If so please state below. PHYSICIAN RESPONSE: [ ] Acidosis [ ] Clinically insignificant lab value [ ] other Condition Present on Admission: [] Yes [] No []Clinically Undeterminable Please also document in your Progress Notes and/or Discharge Summary and indicate if the condition was present on admission. ESTEFANIA
--- NOTE | 2018-09-08 19:46 | NUR ---
HAND-OFF: Report given to KATHARINA Rodriguez. Pt in stable condition.
--- NOTE | 2018-09-08 19:50 | NUR ---
NURSE NOTES: Received report and pt from KATHARINA Retana, pt's in stable condition, watching TV. Pt is awake, AAO x4, on 2L O2 via NC. Pt has a RFA 20g IV and LFA 18g IV. No skin alterations noted at this time. Bed is in lowest position with alarm on, side rails up x 2, call light within reach. Will continue to monitor pt.
[2018-09-08 20:00] VITALS: BP 132/72
[2018-09-09] VITALS: BP 130/70
--- NOTE | 2018-09-09 | NUR ---
NURSE NOTES: Pt's resting in bed, watching TV, in no acute distress. VS stable. Will continue to monitor.
[2018-09-09] MEDS: guaiFENesin 100mg/5ml Liq ud ORAL PRN ×2 (01:05→20:07)
[2018-09-09 04:00] VITALS: BP 134/74
--- NOTE | 2018-09-09 04:00 | NUR ---
NURSE NOTES: Pt's resting in bed, asleep with eyes closed. VS stable, in no acute distress. Call light within reach. Will continue to monitor.
--- NOTE | 2018-09-09 07:36 | NUR ---
HAND-OFF: Report given to KATHARINA Lynch.
--- NOTE | 2018-09-09 07:42 | NUR ---
NURSE NOTES: Received report from KATHARINA Rodriguez. Observed patient in bed, awake, responsive, able to make needs known. Patient on room air at this time, no distress noted. IV on right and left forearm intact and patent. Denies pain at this time. Bed in lowest position, side rails up x 2, call light within reach. Will continue to monitor.
[2018-09-09 08:00] VITALS: BP 138/81
[2018-09-09] MEDS: Furosemide 40mg tab ORAL SCH (09:21)
[2018-09-09] MEDS: Aspirin EC 81mg tab ORAL SCH (09:21)
[2018-09-09] MEDS: Losartan 25mg tab ORAL SCH (09:21)
[2018-09-09] MEDS: Thiamine 100mg tab ORAL SCH (09:22)
[2018-09-09] MEDS: Docusate 100mg cap ORAL SCH ×2 (09:22→18:19)
[2018-09-09] MEDS: Eliquis 2.5mg tablet ORAL SCH ×2 (09:23→18:19)
[2018-09-09 12:00] VITALS: BP 138/83
--- NOTE | 2018-09-09 13:49 | NUR ---
*-* INSURANCE *-* ALL CLINICALS AND REVIEW HAVE BEEN FAXED TO: DESHAUN YOUNGM: MIGUEL ANGEL P- [phone] F- [phone]...........REVIEW/CLINICAL
--- NOTE | 2018-09-09 13:50 | NUR ---
NURSE NOTES: Received phone call from Dr. Velasquez regarding previous messages left. Patient is in and out of A fib with runs of V tach. Patient is asymptomatic, no c/o pain. Patient's HR also dropped as low as 38 beats per minute. Per Dr. Velasquez, patient is not cleared for discharge. Orders placed in computer by Dr. Velasquez. Magnesium level to be checked STAT and 2g of magnesium IVPB to be given even before magnesium level is resulted. Will continue to monitor and follow plan of care.
--- NOTE | 2018-09-09 14:52 | General Progress Note ---
Assessment/Plan Assessment/Plan: Acute exacerbation of congestive heart failure Atrial fibrillation pleural effusion ARF thrombocytopenia PLAN has meds at home cards evaluation and clearance stabilize impression, plan, and exam edited and reviewed in detail care discussed with RN Subjective Allergies: Coded Allergies: No Known Allergies (Unverified , 09/06/18) Subjective care noted Objective Last 24 Hour Vital Signs Date Time Temp Pulse Resp B/P (MAP) Pulse Ox O2 Delivery O2 Flow Rate FiO2 09/09/18 12:01 100 09/09/18 12:00 2.0 09/09/18 12:00 95.9 99 22 138/83 (101) 99 09/09/18 12:00 Room Air 09/09/18 09:22 80 09/09/18 09:21 138/81 09/09/18 09:21 80 138/81 09/09/18 09:21 80 138/81 09/09/18 08:00 2.0 09/09/18 08:00 97.5 69 21 138/81 (100) 98 09/09/18 08:00 Room Air 09/09/18 07:46 77 09/09/18 04:00 2.0 09/09/18 04:00 97.7 91 21 134/74 (94) 100 09/09/18 04:00 76 09/09/18 04:00 Nasal Cannula 2.0 09/09/18 00:00 97.5 96 21 130/70 (90) 100 09/09/18 00:00 Nasal Cannula 2.0 09/09/18 00:00 2.0 09/08/18 20:55 67 132/72 09/08/18 20:00 94 Nasal Cannula 2.0 28 09/08/18 20:00 2.0 09/08/18 20:00 70 09/08/18 20:00 Nasal Cannula 2.0 09/08/18 20:00 97.6 67 21 132/72 (92) 99 09/08/18 20:00 72 20 Nasal Cannula 2.0 28 09/08/18 20:00 Nasal Cannula 2.0 28 09/08/18 16:00 2.0 09/08/18 16:00 Nasal Cannula 2.0 09/08/18 16:00 64 09/08/18 16:00 97.7 81 21 132/74 (93) 99 Intake and Output 09/08/18 09/09/18 19:00 07:00 Intake Total 600 ml Output Total 175 ml 600 ml Balance 425 ml -600 ml Intake Oral 600 ml Output Urine Total 175 ml 600 ml # Voids 2 3 # Bowel Movements 4 2 Height (Feet): 6 Height (Inches): 1.00 Weight (Pounds): 181 Objective WDWN NAD reduced breath sounds bilaterally without rhonchi or wheeze [id number] without MRG; distant NABS nontender no HSM no CC edema nonfocal Bebeto Dillon MD September 09, 2018 14:52
[2018-09-09 16:00] VITALS: BP 118/75
[2018-09-09] MEDS: Albuterol/Ipratropium 3ml neb HHN PRN (17:24)
--- NOTE | 2018-09-09 19:06 | NUR ---
HAND-OFF: Report given to KATHARINA Watson. Patient in stable condition.
--- NOTE | 2018-09-09 19:10 | NUR ---
NURSE NOTES: Report received from KATHARINA Lynch. Observed pt watching television on the bed. Pt c/o dry cough and states that Robitussin does not work. Will notify . 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 On 2L NC, saturating at 100%. IV on R FA 20G, asymptomatic and SL, L FA 18 G, asymptomatic and SL. Bed in the lowest position. Side rails up x2. Call light within reach. Will continue to monitor.
[2018-09-09 20:00] VITALS: BP 136/69
[2018-09-09] MEDS: Carvedilol 6.25mg Tab ORAL SCH (20:07)
--- NOTE | 2018-09-09 20:30 | NUR ---
NURSE NOTES: Notified MD regarding cough prn not effective and new order received and will be carried out. Pt appear calm with mild dry cough. Will continue to monitor.
--- NOTE | 2018-09-09 20:30 | Consultation ---
DATE OF CONSULTATION: 09/08/2018 CONSULTING PHYSICIAN: Fracisco Velasquez M.D. REFERRING PHYSICIAN: Bebeto Dillon M.D. REASON FOR CONSULTATION: Management of shortness of breath. HISTORY OF PRESENT ILLNESS: The patient is a very unfortunate 58-year-old gentleman, who was brought in by EMS for evaluation and management of progressive worsening of shortness of breath. The patient has a prior history of congestive heart failure and was recently discharged from [facility]. The patient also has history of atrial fibrillation and has been anticoagulated with Eliquis. After discharge from [facility], he was placed on furosemide 80 mg on a daily basis, but despite that felt that he could not breathe well. At the time of arrival to this facility, blood pressure was 118/90 with heart rate of 150 and respiratory rate of 25 and O2 saturation 98%. He was afebrile. He was admitted to [facility] for further evaluation and management. Cardiology consultation was made at the request of Dr. Dillon for assessment and evaluation of acute heart failure. PAST MEDICAL HISTORY: 1. Congestive heart failure. 2. Atrial fibrillation. 3. Hypertension. PAST SURGICAL HISTORY: None. ALLERGIES: No known drug allergies. FAMILY HISTORY: No premature coronary artery disease in the first-degree relatives. SOCIAL HISTORY: Denies any tobacco, alcohol, or illicit drug use. MEDICATIONS: List of medications at home includes amlodipine 5 mg p.o. daily, Ativan 5 mg p.o. daily, aspirin 81 mg p.o. daily, carvedilol 3.125 mg twice daily, Colace 100 mg twice daily, famotidine 20 mg p.o. twice daily, losartan 25 mg daily, and potassium chloride 20 mEq daily. REVIEW OF SYSTEMS: A 12-system review done essentially negative except what was mentioned in the history of present illness. PHYSICAL EXAMINATION: VITAL SIGNS: Blood pressure at the time of arrival to the hospital 118/90, pulse of 150, respirations of 25, O2 saturation of 98%, and temperature of 98.1 degrees Fahrenheit. GENERAL: The patient is a very unfortunate 58-year-old male, in no apparent respiratory distress, and chronically ill. HEENT: Atraumatic and normocephalic. Anicteric. Pupils are equal, round, and reactive to light and accommodation. NECK: JVP high at 15 cm. No carotid bruit. CVS: Normal S1 and S2. Tachycardic. Irregularly irregular. A 2/6 mid systolic murmur at the left sternal border. LUNGS: Diminished breath sounds with bibasilar crackles. ABDOMEN: Soft, nontender, and nondistended. No hepatosplenomegaly. Positive bowel sounds. EXTREMITIES: No evidence of edema, clubbing, or cyanosis. LABORATORY FINDINGS: WBC was 4.9, hemoglobin 12.9, hematocrit of 40.8%, and platelet count 127,000. Sodium 131, potassium is 4.2, chloride 94, bicarbonate 25, BUN of 24, creatinine 1.7, glucose is 67, and calcium is 10. Troponin I is 0.024. ProBNP was 247. Urine screening showed positive for THC. A 12-lead electrocardiogram shows atrial fibrillation with rapid ventricular response. Chest x-ray showed marked cardiomegaly with small right pleural effusion. ASSESSMENT AND PLAN: The patient is a very unfortunate 58-year-old gentleman seen in Cardiology consultation. 1. Acute heart failure. Clinically, hypervolemic given elevated JVP and presence of crackles in both lungs. We would like to obtain 2D echocardiography for assessment of LV systolic and diastolic function. I would agree with continuation of intravenous Lasix . I, however, would like to discontinue calcium channel kaylene given negative inotropic action of the above. The patient will be started on carvedilol and will be optimized. directed medical therapy with Aldactone, use of RAJINDER, and preferably as an outpatient Entresto and digoxin 0.125 mg on a daily basis will be decreasing the hospitalization rate. 2. History of atrial fibrillation. We will continue with Eliquis. Rate controlled with carvedilol and digoxin. I would like to thank, Dr. Dillon, for the courtesy of this consultation. Fracisco Velasquez M.D. DR: DMITRIY JOB#: [id number] CC:
[2018-09-09] MEDS: guaiFENesin w/Codeine 5ml Liq ud ORAL PRN (22:08)
--- NOTE | 2018-09-09 22:10 | NUR ---
NURSE NOTES: pt c/o moderate dry cough. PRN med given. Pt appears calm and watching television. Will continue to monitor.
--- NOTE | 2018-09-09 23:08 | NUR ---
NURSE NOTES: Observed pt sleeping on the bed. No dry cough at this time. A-fib with HR of 77 noted on cafeteria monitor. No acute distress noted at this time. Will continue to monitor.
--- NOTE | 2018-09-09 23:59 | Cardiology Progress Note ---
Assessment/Plan Assessment/Plan 1. Dilated CM with LVEF at ~25%, continue GDMT. 2. A.fib with RVR 3. YESIKA on CKD, improving. Subjective Subjective Sinus rhthm at rate of 76. Objective Last 24 Hour Vital Signs Date Time Temp Pulse Resp B/P (MAP) Pulse Ox O2 Delivery O2 Flow Rate FiO2 09/09/18 20:07 104 136/69 09/09/18 20:00 97.8 76 20 136/69 (91) 100 09/09/18 20:00 Room Air 09/09/18 20:00 60 09/09/18 20:00 2.0 09/09/18 19:59 75 20 Nasal Cannula 2.0 28 09/09/18 19:59 Nasal Cannula 2.0 28 09/09/18 19:59 96 Nasal Cannula 2.0 28 09/09/18 17:25 78 20 100 Nasal Cannula 2.0 28 09/09/18 17:15 68 20 96 Nasal Cannula 2.0 28 09/09/18 16:00 97.8 71 22 118/75 (89) 100 09/09/18 16:00 Room Air 09/09/18 16:00 2.0 09/09/18 15:52 61 09/09/18 12:01 100 09/09/18 12:00 2.0 09/09/18 12:00 95.9 99 22 138/83 (101) 99 09/09/18 12:00 Room Air 09/09/18 09:22 80 09/09/18 09:21 138/81 09/09/18 09:21 80 138/81 09/09/18 09:21 80 138/81 09/09/18 08:00 2.0 09/09/18 08:00 97.5 69 21 138/81 (100) 98 09/09/18 08:00 Room Air 09/09/18 07:46 77 09/09/18 07:00 62 18 Nasal Cannula 2.0 28 09/09/18 07:00 96 Nasal Cannula 2.0 28 09/09/18 07:00 Nasal Cannula 2.0 28 09/09/18 04:00 2.0 09/09/18 04:00 97.7 91 21 134/74 (94) 100 09/09/18 04:00 76 09/09/18 04:00 Nasal Cannula 2.0 09/09/18 00:00 97.5 96 21 130/70 (90) 100 09/09/18 00:00 Nasal Cannula 2.0 09/09/18 00:00 2.0 Intake and Output 09/08/18 09/09/18 19:00 07:00 Intake Total 600 ml Output Total 175 ml 600 ml Balance 425 ml -600 ml Intake Oral 600 ml Output Urine Total 175 ml 600 ml # Voids 2 3 # Bowel Movements 4 2 Laboratory Tests Test 09/09/18 15:50 Magnesium Level 2.2 MG/DL (1.8-2.4) Microbiology Date/Time Source Procedure Growth Status 09/07/18 02:00 Urine,Clean Catch Urine Culture - Final Mixed Gram Positive Organism Complete Fracisco Velasquez MD September 09, 2018 23:59
[2018-09-10] VITALS: BP 119/77
--- NOTE | 2018-09-10 01:00 | NUR ---
NURSE NOTES: Observed pt watching television. Less dry cough noted after drinking warm water. A-Fib with HR of 70 noted. Snacks provided. Will continue to monitor.
[2018-09-10 04:00] VITALS: BP 114/76
--- NOTE | 2018-09-10 04:26 | NUR ---
NURSE NOTES: Observed pt sitting on the side of the bed and states, "Sitting up makes me less coughing." Pt keeps having dry coughs. Refused to take PRN cough med. Will continue to monitor.
--- NOTE | 2018-09-10 07:17 | NUR ---
HAND-OFF: Report given to KATHARINA Lynch. No acute distress noted at this time.
--- NOTE | 2018-09-10 07:30 | NUR ---
NURSE NOTES: Received report from KATHARINA Watson. Observed patient in bed, awake, and is able to make needs known. Patient on O2 2L via NC, c/o dry cough. IV on right and left forearm intact and patent. No c/o pain at this time. Bed in lowest position, side rails up, and call light within reach. Will continue to monitor.
[2018-09-10 08:00] VITALS: BP 149/79
[2018-09-10] MEDS: Aspirin EC 81mg tab ORAL SCH (09:07)
[2018-09-10] MEDS: guaiFENesin 100mg/5ml Liq ud ORAL PRN (09:07)
[2018-09-10] MEDS: Losartan 25mg tab ORAL SCH (09:08)
[2018-09-10] MEDS: Thiamine 100mg tab ORAL SCH (09:08)
[2018-09-10] MEDS: Carvedilol 6.25mg Tab ORAL SCH (09:08)
[2018-09-10] MEDS: Digoxin 0.125mg tab ORAL SCH (09:09)
[2018-09-10] MEDS: Docusate 100mg cap ORAL SCH ×2 (09:09→18:11)
[2018-09-10] MEDS: Eliquis 2.5mg tablet ORAL SCH ×2 (09:09→18:12)
[2018-09-10] MEDS: Furosemide 40mg tab ORAL SCH (09:10)
[2018-09-10 12:00] VITALS: BP 122/78
--- NOTE | 2018-09-10 12:45 | NUR ---
CYCLE COUNTERMEDICAL SERVICES COORDINATOR SI:AFIB W/RVR . ACUTE CHF VS: BP 149/79, P 116, T 97.5, RR 24, SpO2 100 IS:K-DUR 20meq LASIX 40mg ELIQUIS 2.5mg DIGOXIN 0.125, COZAAR 25mg COREG 6.25 mg SDU STATUS
--- NOTE | 2018-09-10 14:45 | Pulmonology Progress Note ---
Assessment/Plan Assessment/Plan Pulmonary Progress Note Assessment/Plan: Acute exacerbation of congestive heart failure Reduced EF - 25% Atrial fibrillation, on Digoxin, Eliquis pleural effusion ARF thrombocytopenia PLAN has meds at home cards evaluation and clearance stabilize impression, plan, and exam edited and reviewed in detail DC planning if OK Cardiology care discussed with RN Subjective Allergies: Coded Allergies: No Known Allergies (Unverified , 09/06/18) Subjective care noted Objective Vital Signs Noted Height (Feet): 6 Height (Inches): 1.00 Weight (Pounds): 181 Objective WDWN NAD reduced breath sounds bilaterally without rhonchi or wheeze [id number] without MRG; distant NABS nontender no HSM no CC edema nonfocal Subjective ROS Limited/Unobtainable: No Allergies: Coded Allergies: No Known Allergies (Unverified , 09/06/18) Objective Last 24 Hour Vital Signs Date Time Temp Pulse Resp B/P (MAP) Pulse Ox O2 Delivery O2 Flow Rate FiO2 09/10/18 12:00 96.6 70 20 122/78 (93) 100 09/10/18 12:00 Room Air 09/10/18 12:00 2.0 09/10/18 12:00 74 09/10/18 09:09 116 09/10/18 09:08 116 149/79 09/10/18 09:08 149/79 09/10/18 08:00 88 09/10/18 08:00 2.0 09/10/18 08:00 98.2 116 18 149/79 (102) 98 09/10/18 08:00 Room Air 09/10/18 04:00 Room Air 09/10/18 04:00 97.5 96 22 114/76 (89) 99 09/10/18 04:00 2.0 09/10/18 04:00 69 09/10/18 00:00 77 09/10/18 00:00 97.5 74 24 119/77 (91) 99 09/10/18 00:00 Room Air 09/10/18 00:00 2.0 09/09/18 20:07 104 136/69 09/09/18 20:00 97.8 76 20 136/69 (91) 100 09/09/18 20:00 Room Air 09/09/18 20:00 60 09/09/18 20:00 2.0 09/09/18 19:59 75 20 Nasal Cannula 2.0 28 09/09/18 19:59 Nasal Cannula 2.0 28 09/09/18 19:59 96 Nasal Cannula 2.0 28 09/09/18 17:25 78 20 100 Nasal Cannula 2.0 28 09/09/18 17:15 68 20 96 Nasal Cannula 2.0 28 09/09/18 16:00 97.8 71 22 118/75 (89) 100 09/09/18 16:00 Room Air 09/09/18 16:00 2.0 09/09/18 15:52 61 Intake and Output 09/09/18 09/10/18 19:00 07:00 Intake Total 680 ml 240 ml Output Total 1000 ml 700 ml Balance -320 ml -460 ml Intake Oral 480 ml 240 ml IV Total 200 ml Output Urine Total 1000 ml 700 ml # Voids 2 3 # Bowel Movements 2 Laboratory Tests 09/09/18 15:50: Magnesium Level 2.2 Current Medications Medications (Trade) Dose Ordered Sig/Bradford Route PRN Reason Start Time Stop Time Status Last Admin Dose Admin Acetaminophen (Tylenol) 650 mg Q6H PRN ORAL Mild Pain/Temp > 100.5 09/06/18 22:15 10/06/18 22:14 09/09/18 01:05 Albuterol/ Ipratropium (Albuterol/ Ipratropium) 3 ml Q6HRT PRN HHN Shortness of Breath 09/07/18 06:15 09/12/18 06:14 09/09/18 17:24 Apixaban (Eliquis) 2.5 mg BID ORAL 09/08/18 18:00 10/08/18 17:59 09/10/18 09:09 Aspirin (Ecotrin) 81 mg DAILY ORAL 09/07/18 09:00 10/07/18 08:59 09/10/18 09:07 Carvedilol (Coreg) 6.25 mg EVERY 12 HOURS ORAL 09/09/18 21:00 10/09/18 20:59 09/10/18 09:08 Digoxin (Lanoxin) 0.125 mg DAILY ORAL 09/10/18 09:00 10/10/18 08:59 09/10/18 09:09 Diphenhydramine HCl (Benadryl) 25 mg Q6H PRN ORAL Itching 09/06/18 22:15 10/06/18 22:14 Docusate Sodium (Colace) 100 mg TWICE A DAY ORAL 09/07/18 09:00 10/07/18 08:59 09/10/18 09:09 Famotidine (Pepcid) 20 mg TWICE A DAY ORAL 09/07/18 09:00 10/07/18 08:59 09/10/18 09:08 Furosemide (Lasix) 40 mg DAILY ORAL 09/07/18 09:00 10/07/18 08:59 09/10/18 09:10 Guaifenesin (Robitussin) 200 mg Q4H PRN ORAL For Cough 09/08/18 09:00 10/08/18 08:59 09/09/18 20:07 Guaifenesin/ Codeine Phosphate (Robitussin with codeine) 10 ml Q4H PRN ORAL For Cough 09/09/18 20:30 10/09/18 20:29 09/09/18 22:08 Losartan Potassium (Cozaar) 25 mg DAILY ORAL 09/07/18 09:00 10/07/18 08:59 09/10/18 09:08 Morphine Sulfate (Morphine Sulfate) 1 mg Q3H PRN IVP Severe Pain (Pain Scale 7-10) 09/06/18 22:30 09/13/18 22:29 Multivitamins (Multivitamins) 1 tab DAILY ORAL 09/07/18 13:00 10/07/18 12:59 09/10/18 09:09 Ondansetron HCl (Zofran) 4 mg Q8H PRN IVP Nausea & Vomiting 09/06/18 22:15 10/06/18 22:14 Potassium Chloride (K-Dur) 20 meq DAILY ORAL 09/07/18 09:00 10/07/18 08:59 09/10/18 09:10 Thiamine HCl (Vitamin B1) 100 mg DAILY ORAL 09/07/18 13:00 10/07/18 12:59 09/10/18 09:08 Haris Kern MD September 10, 2018 14:45
--- NOTE | 2018-09-10 14:50 | NUR ---
*-* INSURANCE *-* updated CLINICALS AND REVIEW HAVE BEEN FAXED TO: DESHAUN YOUNGM: MIGUEL ANGEL P- [phone] F- [phone]...........REVIEW/CLINICAL
[2018-09-10] MEDS ORDERED: Ipratropium 0.02% Inh Soln 2.5ml UD HHN PRN (15:45)
[2018-09-10 16:00] VITALS: BP 129/80
[2018-09-10 17:07] LABS: ANION GAP 6 mmol/L (5-15); BLOOD UREA NITROGEN 20 mg/dL (7-18); CALCIUM 9.1 MG/DL (8.5-10.1); CARBON DIOXIDE 29 MMOL/L (21-32); CHLORIDE 95 MMOL/L (98-107); CREATININE 1.2 MG/DL (0.55-1.30); POTASSIUM 4.1 MMOL/L (3.5-5.1); SODIUM 130 MMOL/L (136-145)
--- NOTE | 2018-09-10 19:10 | NUR ---
NURSE NOTES: Received report from Tessa RN and Cris RN, pt. in bed awake- A/O x's4-able to make needs known, court recording monitor on, pt. denies pain, bed in lowest position and call light within easy reach, bed alarm on and safety brakes engaged, urinal at bed side and within easy reach, Commode also at bedside- pt. aware to ask for assist as he mentioned his gait is weak and not steady when ambulating, all needs attended to, pt. appears to be sating well on 2L NC at 97%-no distress noted, pt. has LFA 20G- iv intact and patent, Safety measures continued, will continue with plan of care.
--- NOTE | 2018-09-10 19:11 | NUR ---
HAND-OFF: Report given to KATHARINA Mae. Patient in stable condition.
--- NOTE | 2018-09-10 19:15 | NUR ---
NURSE NOTES: pt. requesting sleeping medicine- called DR. Kern- per doctor can order Ambien 5mg HS PRN for insomnia- orders carried out.
--- NOTE | 2018-09-10 19:28 | Cardiology Progress Note ---
Assessment/Plan Assessment/Plan 1. Dilated CM with LVEF at ~25%, continue GDMT, optimizing carvedilol. 2. A.fib with controlled ventricular response, continue carvedilol and Eliquis. 3. Non-sustained ventricular tachycardia, magnesium sulfate given, Mg level at 2.0, increase carvedilol to 6.25mg bid. Subjective Subjective Atrial fibrillation with CVR at 69. Short runs of NSVT noted. Objective Last 24 Hour Vital Signs Date Time Temp Pulse Resp B/P (MAP) Pulse Ox O2 Delivery O2 Flow Rate FiO2 09/10/18 16:00 69 09/10/18 16:00 96.6 75 20 129/80 (96) 96 09/10/18 16:00 2.0 09/10/18 16:00 Room Air 09/10/18 12:00 96.6 70 20 122/78 (93) 100 09/10/18 12:00 Room Air 09/10/18 12:00 2.0 09/10/18 12:00 74 09/10/18 09:09 116 09/10/18 09:08 116 149/79 09/10/18 09:08 149/79 09/10/18 08:00 88 09/10/18 08:00 2.0 09/10/18 08:00 98.2 116 18 149/79 (102) 98 09/10/18 08:00 Room Air 09/10/18 04:00 Room Air 09/10/18 04:00 97.5 96 22 114/76 (89) 99 09/10/18 04:00 2.0 09/10/18 04:00 69 09/10/18 00:00 77 09/10/18 00:00 97.5 74 24 119/77 (91) 99 09/10/18 00:00 Room Air 09/10/18 00:00 2.0 09/09/18 20:07 104 136/69 09/09/18 20:00 97.8 76 20 136/69 (91) 100 09/09/18 20:00 Room Air 09/09/18 20:00 60 09/09/18 20:00 2.0 09/09/18 19:59 75 20 Nasal Cannula 2.0 28 09/09/18 19:59 Nasal Cannula 2.0 28 09/09/18 19:59 96 Nasal Cannula 2.0 28 Intake and Output 09/09/18 09/10/18 19:00 07:00 Intake Total 680 ml 240 ml Output Total 1000 ml 700 ml Balance -320 ml -460 ml Intake Oral 480 ml 240 ml IV Total 200 ml Output Urine Total 1000 ml 700 ml # Voids 2 3 # Bowel Movements 2 2D Echo: Global LVHK, LVEF 20%, RVSP 46 mmHg, Mod-Sev MR Laboratory Tests Test 09/10/18 16:35 Sodium Level 130 MMOL/L (136-145) L Potassium Level 4.1 MMOL/L (3.5-5.1) Chloride Level 95 MMOL/L (98-107) L Carbon Dioxide Level 29 MMOL/L (21-32) Anion Gap 6 mmol/L (5-15) Blood Urea Nitrogen 20 mg/dL (7-18) H Creatinine 1.2 MG/DL (0.55-1.30) Estimat Glomerular Filtration Rate > 60 mL/min (>60) Glucose Level 98 MG/DL (74-106) Calcium Level 9.1 MG/DL (8.5-10.1) Magnesium Level 2.0 MG/DL (1.8-2.4) Objective HEENT: Atraumatic and normocephalic. Anicteric. Pupils are equal, round, and reactive to light and accommodation. NECK: JVP high at 15 cm. No carotid bruit. CVS: Normal S1 and S2. Tachycardic. Irregularly irregular. A 2/6 mid systolic murmur at the left sternal border. LUNGS: Diminished breath sounds with bibasilar crackles. ABDOMEN: Soft, nontender, and nondistended. No hepatosplenomegaly. Positive bowel sounds. EXTREMITIES: No evidence of edema, clubbing, or cyanosis. Fracisco Velasquez MD September 10, 2018 19:28
[2018-09-10] MEDS ORDERED: Zolpidem 5mg tab ORAL PRN (19:30)
[2018-09-10 20:00] VITALS: BP 124/97
[2018-09-10] MEDS: guaiFENesin w/Codeine 5ml Liq ud ORAL PRN (20:15)
[2018-09-10] MEDS: Carvedilol 12.5mg tab ORAL SCH (20:16)
[2018-09-11] VITALS: BP 124/87
[2018-09-11 04:00] VITALS: BP 124/75
--- NOTE | 2018-09-11 07:14 | NUR ---
HAND-OFF: Report given to Carley RN, pt. remains stable and no signs of distress noted.
--- NOTE | 2018-09-11 07:15 | NUR ---
NURSE NOTES: Report received from Corey POSADAS.Pt awake alert oriented,sitting up on side of bed eating breakfast,noted no resp distress on 2 L NC ,denies any c/o chest pain or discomfort,Afib on the monitor,,IV site to LFA intact,skin warm and dry,SR up x2 HOB elevated,bed lock in lowest position,will continue with plans of care.
[2018-09-11 08:00] VITALS: BP 140/80
--- NOTE | 2018-09-11 08:12 | General Progress Note ---
Assessment/Plan Assessment/Plan: Acute exacerbation of congestive heart failure Atrial fibrillation pleural effusion ARF thrombocytopenia cough NSVT PLAN intensify cards therapy cards evaluation and clearance stabilize and dc once cleared impression, plan, and exam edited and reviewed in detail care discussed with RN Subjective Allergies: Coded Allergies: No Known Allergies (Unverified , 09/06/18) Subjective care noted dc held per cards Objective Last 24 Hour Vital Signs Date Time Temp Pulse Resp B/P (MAP) Pulse Ox O2 Delivery O2 Flow Rate FiO2 09/11/18 07:40 81 19 Nasal Cannula 2.0 28 09/11/18 07:40 Nasal Cannula 2.0 28 09/11/18 07:40 95 Nasal Cannula 2.0 28 09/11/18 04:00 97.0 62 22 124/75 (91) 99 09/11/18 04:00 2.0 09/11/18 04:00 76 09/11/18 04:00 Room Air 09/11/18 00:00 92 09/11/18 00:00 2.0 09/11/18 00:00 97.0 76 22 124/87 (99) 97 09/11/18 00:00 Room Air 09/10/18 20:38 Nasal Cannula 2.0 28 09/10/18 20:38 97 Nasal Cannula 2.0 28 09/10/18 20:38 84 20 Nasal Cannula 2.0 28 09/10/18 20:16 72 124/97 09/10/18 20:00 82 09/10/18 20:00 Room Air 09/10/18 20:00 2.0 09/10/18 20:00 97.3 72 24 124/97 (106) 100 09/10/18 16:00 69 09/10/18 16:00 96.6 75 20 129/80 (96) 96 09/10/18 16:00 2.0 09/10/18 16:00 Room Air 09/10/18 12:00 96.6 70 20 122/78 (93) 100 09/10/18 12:00 Room Air 09/10/18 12:00 2.0 09/10/18 12:00 74 09/10/18 09:09 116 09/10/18 09:08 116 149/79 09/10/18 09:08 149/79 Intake and Output 5/15/19 5/16/19 18:59 06:59 Intake Total 480 ml Output Total 550 ml Balance -70 ml Intake Oral 480 ml Output Urine Total 550 ml # Voids 2 4 # Bowel Movements 1 Laboratory Tests 09/10/18 16:35: Sodium Level 130L, Potassium Level 4.1, Chloride Level 95L, Carbon Dioxide Level 29, Anion Gap 6, Blood Urea Nitrogen 20H, Creatinine 1.2, Estimat Glomerular Filtration Rate > 60, Glucose Level 98, Calcium Level 9.1, Magnesium Level 2.0 Height (Feet): 6 Height (Inches): 1.00 Weight (Pounds): 185 Objective WDWN NAD reduced breath sounds bilaterally without rhonchi or wheeze [id number] without MRG; distant NABS nontender no HSM no CC edema nonfocal Bebeto Dillon MD September 11, 2018 08:12
--- NOTE | 2018-09-11 08:30 | NUR ---
NURSE NOTES: Dr Dillon at bedside,order to put pt on RA,ordered done and carried out.
[2018-09-11] MEDS: Carvedilol 12.5mg tab ORAL SCH ×2 (09:52→21:16)
[2018-09-11] MEDS: Docusate 100mg cap ORAL SCH ×2 (09:52→17:08)
[2018-09-11] MEDS: Losartan 25mg tab ORAL SCH (09:53)
[2018-09-11] MEDS: Thiamine 100mg tab ORAL SCH (09:53)
[2018-09-11] MEDS: Digoxin 0.125mg tab ORAL SCH (09:53)
[2018-09-11] MEDS: Aspirin EC 81mg tab ORAL SCH (09:53)
[2018-09-11] MEDS: Furosemide 40mg tab ORAL SCH (09:58)
[2018-09-11] MEDS: Eliquis 2.5mg tablet ORAL SCH (09:58)
--- NOTE | 2018-09-11 10:24 | Cardiac Electrophysiology PN ---
Subjective Subjective [id number] Objective Last 24 Hour Vital Signs Date Time Temp Pulse Resp B/P (MAP) Pulse Ox O2 Delivery O2 Flow Rate FiO2 09/11/18 09:53 97 09/11/18 09:53 140/80 09/11/18 09:52 97 140/80 09/11/18 08:00 96.6 97 20 140/80 (100) 98 09/11/18 07:40 81 19 Nasal Cannula 2.0 28 09/11/18 07:40 Nasal Cannula 2.0 28 09/11/18 07:40 95 Nasal Cannula 2.0 28 09/11/18 04:00 97.0 62 22 124/75 (91) 99 09/11/18 04:00 2.0 09/11/18 04:00 76 09/11/18 04:00 Room Air 09/11/18 00:00 92 09/11/18 00:00 2.0 09/11/18 00:00 97.0 76 22 124/87 (99) 97 09/11/18 00:00 Room Air 09/10/18 20:38 Nasal Cannula 2.0 28 09/10/18 20:38 97 Nasal Cannula 2.0 28 09/10/18 20:38 84 20 Nasal Cannula 2.0 28 09/10/18 20:16 72 124/97 09/10/18 20:00 82 09/10/18 20:00 Room Air 09/10/18 20:00 2.0 09/10/18 20:00 97.3 72 24 124/97 (106) 100 09/10/18 16:00 69 09/10/18 16:00 96.6 75 20 129/80 (96) 96 09/10/18 16:00 2.0 09/10/18 16:00 Room Air 09/10/18 12:00 96.6 70 20 122/78 (93) 100 09/10/18 12:00 Room Air 09/10/18 12:00 2.0 09/10/18 12:00 74 Intake and Output 09/10/18 09/11/18 18:59 06:59 Intake Total 480 ml Output Total 550 ml Balance -70 ml Intake Oral 480 ml Output Urine Total 550 ml # Voids 2 4 # Bowel Movements 1 Laboratory Tests Test 09/10/18 16:35 Sodium Level 130 MMOL/L (136-145) L Potassium Level 4.1 MMOL/L (3.5-5.1) Chloride Level 95 MMOL/L (98-107) L Carbon Dioxide Level 29 MMOL/L (21-32) Anion Gap 6 mmol/L (5-15) Blood Urea Nitrogen 20 mg/dL (7-18) H Creatinine 1.2 MG/DL (0.55-1.30) Estimat Glomerular Filtration Rate > 60 mL/min (>60) Glucose Level 98 MG/DL (74-106) Calcium Level 9.1 MG/DL (8.5-10.1) Magnesium Level 2.0 MG/DL (1.8-2.4) Fracisco Pride MD September 11, 2018 10:24
--- NOTE | 2018-09-11 10:30 | NUR ---
NURSE NOTES: Seen by Dr Pride,discussed plans for ICD insertion,verbalized understanding,will get consent for medical records from [facility].
--- NOTE | 2018-09-11 11:56 | NUR ---
*-* INSURANCE *-* UPDATED CLINICALS AND REVIEW HAVE BEEN FAXED TO: DESHAUN YOUNGM: MIGUEL ANGEL P- [phone] F- [phone]...........REVIEW/CLINICAL
[2018-09-11 12:00] VITALS: BP 136/73
--- NOTE | 2018-09-11 15:15 | NUR ---
NURSE NOTES: Pt stable,no distress presented for transfer to Telemetry,Nsg Sup called,pt to go to 217.
[2018-09-11] MEDS: guaiFENesin w/Codeine 5ml Liq ud ORAL PRN (15:41)
--- NOTE | 2018-09-11 16:00 | NUR ---
TRANSFER TO FLOOR: Patient transferred to Telemetry r00m 217-1, per bed awake,alert oriented in no resp distress or discomfort.Report given to Matty POSADAS. Belongings given to receiving RN.
[2018-09-11 16:06] VITALS: BP 140/91
--- NOTE | 2018-09-11 16:10 | NUR ---
NURSE NOTES: Patient is transferred from [facility]. Patient is in stable condition. No acute distress/SOB noted. On room air. Patient denies any pain/discomfort. Inventory check done. Skin intact and clean. Will continue plan of care.
[2018-09-11] MEDS ORDERED: Morphine Sulfate 2mg/ml Inj(IV/IM USE ONLY) IVP PRN (16:30)
[2018-09-11] MEDS ORDERED: guaiFENesin 100mg/5ml Liq ud ORAL PRN (16:31)
[2018-09-11] MEDS ORDERED: guaiFENesin w/Codeine 5ml Liq ud ORAL PRN (16:31)
--- NOTE | 2018-09-11 16:58 | NUR ---
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 ACUTE CHF VS: BP 140/91, P 58, T 96.3, RR 20, SpO2 97 IS: K-DUR 20meq LASIX 40mg ELIQUIS 2.5mg DIGOXIN 0.125, COZAAR 25mg COREG 6.25 mg COZAAR 25mg PENDING AUTH ON DEFIBRILLATOR SDU STATUS
--- NOTE | 2018-09-11 17:00 | Consultation ---
DATE OF CONSULTATION: 09/11/2018 CARDIAC ELECTROPHYSIOLOGY CONSULTATION: CONSULTING PHYSICIAN: Fracisco Pride M.D. REFERRING PHYSICIAN: Fracisco Velasquez M.D. REASON FOR CONSULTATION: Consideration for defibrillator implantation for ventricular tachycardia in the setting of severe cardiomyopathy. HISTORY OF PRESENT ILLNESS: The patient is a 58-year-old gentleman with history of hypertension, congestive heart failure, history of coronary artery bypass graft in 2009 in [facility]. The patient states that at that time, he was in prison. The patient was admitted to the hospital with increasing shortness of breath. The patient also has atrial fibrillation and has been anticoagulated with Eliquis. While the patient in the hospital, the patient had multiple runs of ventricular tachycardia and the echocardiogram showed ejection fraction to around 20%. Cardiac electrophysiology consultation was requested for placement of a defibrillator. REVIEW OF SYSTEMS: Negative other than what was mentioned in the history of present illness. PAST MEDICAL HISTORY: As mentioned above. FAMILY HISTORY: Noncontributory. SOCIAL HISTORY: Lives at home. Does not smoke or drink alcohol. PHYSICAL EXAMINATION: VITAL SIGNS: Show blood pressure of 140/80, pulse is 90, respirations 18, and he is afebrile. HEAD AND NECK: Shows positive JVD. LUNGS: Decreased breath sounds. CARDIOVASCULAR: Irregular S1 and S2 with no gallop or murmur. Sternotomy scar is intact. ABDOMEN: Soft. EXTREMITIES: 1+ pitting edema. LABORATORY AND DIAGNOSTIC DATA: His labs show white count 3.8, hemoglobin 12.1, hematocrit 38.2, and platelet count 125. Sodium 130, potassium 4.1, BUN of 20, creatinine 1.2, and glucose of 98. Troponin is negative. Urine toxicology is positive only for marijuana. His 12-lead EKG showed atrial fibrillation with rapid ventricular response with incomplete right bundle-branch block with left axis deviation, QRS duration 170 milliseconds. The telemetry strip showed multiple runs of nonsustained ventricular tachycardia. ASSESSMENT AND PLAN: 1. Nonsustained ventricular tachycardia in a patient with history of postinfarct cardiomyopathy, EF of only 20%, and history of bypass graft. We will try to get the records from [facility], which is hospital that he was most recently at. He most likely would need a prophylactic defibrillator implantation. If it is chronic atrial fibrillation, he may need a single-chamber defibrillator or biventricular defibrillator to achieve QRS duration 170 milliseconds. In the meantime, continue the patient on Coreg 12.5 mg b.i.d. 2. Atrial fibrillation with rapid ventricular response. Heart rate is better with digoxin 0.125 mg daily and Coreg 12.5 mg b.i.d. The patient is on Eliquis 1 tablet b.i.d. that will be held in case the insurance approves the defibrillator implantation. 3. Severe postinfarct cardiomyopathy, on Cozaar 25 daily, Lasix 40 daily, digoxin and Coreg as mentioned above. 4. Coronary artery disease with history of coronary artery bypass graft. We will try to get the records from [facility]. Further evaluation per Dr. Velasquez. Thank you very much, Dr. Velasquez, for allowing me to participate in the care of this patient. Please do not hesitate to contact me if you have any questions regarding my evaluation. Fracisco Pride M.D. DR: QUETA JOB#: [id number] CC:
[2018-09-11] MEDS ORDERED: Ipratropium 0.02% Inh Soln 2.5ml UD HHN PRN (19:00)
--- NOTE | 2018-09-11 19:18 | NUR ---
HAND-OFF: Report given to KATHARINA Sheppard. Patient is in stable condition. Endorsed plan of care.
--- NOTE | 2018-09-11 19:28 | NUR ---
NURSE NOTES: Received report from KATHARINA Starr. Patient is asleep lying semi-ulloa's; resting comfortably. Arousable to verbal stimuli. No signs of acute distress noted; denies pain at this time. AOx4; able to make needs known. Checked IV site; patent and flushed. No erythema, bleeding, or infiltration noted. Urinal easily accessible. Bed at lowest position, brakes on, siderails up x3. Call light within reach. Will continue to monitor.
[2018-09-11 20:00] VITALS: BP 145/83
--- NOTE | 2018-09-11 20:39 | Cardiology Report ---
APPROVED REPORT EXAM: Two-dimensional and M-mode echocardiogram with Doppler and color Doppler. INDICATION Pericardial effusion. M-Mode DIMENSIONS IVSd1.3 (0.7-1.1cm)Left Atrium (MM)4.6 (1.6-4.0cm) LVDd6.7 (3.5-5.6cm)Aortic Root3.2 (2.0-3.7cm) PWd1.0 (0.7-1.1cm)Aortic Cusp Exc.2.0 (1.5-2.0cm) LVDs5.1 (2.5-4.0cm) PWs1.1 cm Moderate left ventricular enlargement. Severe global left ventricular hypokinesis. Mild diastolic septal flattening of LV suggestive of RV volume overload. Left ventricular ejection fraction estimated to be 20-25 %. No evidence of left ventricular hypertrophy. Mild left atrial enlargement. Right cardiac chambers are severely enlarged. Focal aortic valve sclerosis with adequate cusp excursion. Thickened mitral valve leaflets with normal excursion. Mitral annulus and aortic root calcification. Pulmonic valve not well visualized. Normal tricuspid valve structure. IVC dilated at 3.4 cm without physiologic collapse suggestive of RA pressure at least 20 mmHg. NO EVIDENCE OF PERICARDIAL EFFUSION. A color flow and spectral Doppler study was performed and revealed: Moderate to severe mitral regurgitation. Can not determine left ventricular diastolic function by mitral diastolic velocities due to atrial fibrillation. Moderate to severe tricuspid regurgitation. Tricuspid systolic velocities suggests peak right ventricular systolic pressure of 46 mmHg, consistent with moderate pulmonary hypertension. Trace pulmonic regurgitation present.
[2018-09-11] MEDS ORDERED: Zolpidem 5mg tab ORAL PRN (21:00)
[2018-09-11] MEDS: Enoxaparin 60mg Inj SUBQ SCH (21:00)
[2018-09-11] MEDS ORDERED: Enoxaparin 60mg Inj SUBQ SCH (21:00)
--- NOTE | 2018-09-11 23:30 | NUR ---
HAND-OFF: Report given to KATHARINA Smith. Patient is asleep lying semi-ulloa's; resting comfortably. In stable condition.
--- NOTE | 2018-09-11 23:45 | NUR ---
NURSE NOTES: Received report from Altagracia Luong RN. Patient is awake in bed, A/O x4. court monitor shows a. fib w/ BBB. No s/s of acute distress noted. Receiving 2L O2 via nasal cannula and saturating well. Left forearm 20g IV saline lock, intact and patent. Bed locked in lowest position with side rails up x2. Call light left within reach. Will continue to monitor.
--- NOTE | 2018-09-11 23:53 | Cardiology Progress Note ---
Assessment/Plan Assessment/Plan 1. Dilated CM with LVEF at ~25%, continue GDMT, optimizing carvedilol. EP note appreciated. 2. A.fib with controlled ventricular response, continue carvedilol, Eliquis on hold in preparation for AICD.. 3. Non-sustained ventricular tachycardia, magnesium sulfate given, Mg level at 2.0, optimize carvedilol. Subjective Subjective Atrial fibrillation with CVR at 75. Continues to show short runs of NSVT. Objective Last 24 Hour Vital Signs Date Time Temp Pulse Resp B/P (MAP) Pulse Ox O2 Delivery O2 Flow Rate FiO2 09/11/18 21:16 75 145/83 09/11/18 19:43 96 Room Air 21 09/11/18 19:43 62 18 Room Air 21 09/11/18 19:43 Room Air 21 09/11/18 16:06 97.9 69 19 140/91 (107) 97 09/11/18 16:01 Room Air 09/11/18 16:00 63 09/11/18 12:00 94 09/11/18 12:00 96.3 58 20 136/73 (94) 98 09/11/18 12:00 Room Air 09/11/18 09:53 97 09/11/18 09:53 140/80 09/11/18 09:52 97 140/80 09/11/18 08:00 88 09/11/18 08:00 96.6 97 20 140/80 (100) 98 09/11/18 08:00 Room Air 09/11/18 07:40 81 19 Nasal Cannula 2.0 28 09/11/18 07:40 Nasal Cannula 2.0 28 09/11/18 07:40 95 Nasal Cannula 2.0 28 09/11/18 04:00 97.0 62 22 124/75 (91) 99 09/11/18 04:00 2.0 09/11/18 04:00 76 09/11/18 04:00 Room Air 09/11/18 00:00 92 09/11/18 00:00 2.0 09/11/18 00:00 97.0 76 22 124/87 (99) 97 09/11/18 00:00 Room Air Intake and Output 09/10/18 09/11/18 19:00 07:00 Intake Total 480 ml Output Total 550 ml Balance -70 ml Intake Oral 480 ml Output Urine Total 550 ml # Voids 2 4 # Bowel Movements 1 2D Echo: Global LVHK, LVEF 20%, RVSP 46 mmHg, Mod-Sev MR Objective HEENT: Atraumatic and normocephalic. Anicteric. Pupils are equal, round, and reactive to light and accommodation. NECK: JVP high at 15 cm. No carotid bruit. CVS: Normal S1 and S2. Tachycardic. Irregularly irregular. A 2/6 mid systolic murmur at the left sternal border. LUNGS: Diminished breath sounds with bibasilar crackles. ABDOMEN: Soft, nontender, and nondistended. No hepatosplenomegaly. Positive bowel sounds. EXTREMITIES: No evidence of edema, clubbing, or cyanosis. Fracisco Velasquez MD September 11, 2018 23:53
[2018-09-12] VITALS: BP 127/85
[2018-09-12 04:00] VITALS: BP 137/89
--- NOTE | 2018-09-12 07:35 | NUR ---
HAND-OFF: Report given to Janelle Wilhelm RN.
[2018-09-12 08:00] VITALS: BP 132/74
--- NOTE | 2018-09-12 08:15 | NUR ---
NURSE NOTES: received pt in the bed, awake, alert, oriented, vital signs stable, no co pain, no SOB, skin warm and dry to touch, intact, Afib, no co chest pain, bed in low position, call light within reach.
[2018-09-12] MEDS: Docusate 100mg cap ORAL SCH ×2 (09:00→17:24)
[2018-09-12] MEDS: Enoxaparin 60mg Inj SUBQ SCH (09:00)
[2018-09-12] MEDS: Aspirin EC 81mg tab ORAL SCH (09:00)
[2018-09-12] MEDS: Digoxin 0.125mg tab ORAL SCH (09:00)
[2018-09-12] MEDS: Losartan 25mg tab ORAL SCH (09:07)
[2018-09-12] MEDS: Carvedilol 12.5mg tab ORAL SCH ×2 (09:07→21:27)
[2018-09-12] MEDS: Furosemide 40mg tab ORAL SCH (09:08)
[2018-09-12] MEDS: Thiamine 100mg tab ORAL SCH (09:08)
--- NOTE | 2018-09-12 11:32 | Cardiac Electrophysiology PN ---
Assessment/Plan Assessment/Plan 1. Nonsustained ventricular tachycardia in a patient with history of postinfarct cardiomyopathy, EF of only 20%, and history of bypass graft. Reviewed records from [facility] from 05/2018 and 08/2018. EF was 20% then also. However patient was noncompliant with active cocaine use which is a contraindication for ICD. 2. Atrial fibrillation with rapid ventricular response. Heart rate is better with digoxin 0.125 mg daily,Coreg 12.5 mg bid and Eliquis 1 tablet b.i.d. 3. Severe postinfarct cardiomyopathy, on Cozaar 25 daily, Lasix 40 daily, digoxin and Coreg per Dr Velasquez 4. Coronary artery disease with history of coronary artery bypass graft. evaluation per Dr. Velasquez. ONEIDA RN and Dr Velasquez Subjective Subjective Got records from [facility] EF was 20% 06/02/18 as well as 08/30/18. ICD was not done for noncompliance and active cocaine use Objective Last 24 Hour Vital Signs Date Time Temp Pulse Resp B/P (MAP) Pulse Ox O2 Delivery O2 Flow Rate FiO2 09/12/18 09:07 132/74 09/12/18 09:07 69 132/74 09/12/18 09:02 69 20 Nasal Cannula 2.0 28 09/12/18 09:01 Nasal Cannula 2.0 28 09/12/18 09:01 97 Nasal Cannula 2.0 28 09/12/18 09:00 60 09/12/18 09:00 Room Air 09/12/18 08:00 70 09/12/18 08:00 96.2 60 20 132/74 (93) 97 09/12/18 04:00 96.9 60 20 137/89 (105) 97 09/12/18 03:58 77 09/12/18 00:04 70 09/12/18 00:00 97.8 67 20 127/85 (99) 100 09/11/18 21:16 75 145/83 09/11/18 20:00 79 09/11/18 20:00 96.8 75 20 145/83 (103) 98 09/11/18 19:43 96 Room Air 21 09/11/18 19:43 62 18 Room Air 21 09/11/18 19:43 Room Air 21 09/11/18 16:06 97.9 69 19 140/91 (107) 97 09/11/18 16:01 Room Air 09/11/18 16:00 63 09/11/18 12:00 94 09/11/18 12:00 96.3 58 20 136/73 (94) 98 09/11/18 12:00 Room Air Intake and Output 09/11/18 09/12/18 18:59 06:59 Intake Total 1080 ml 480 ml Output Total 700 ml 800 ml Balance 380 ml -320 ml Intake Oral 1080 ml 480 ml Output Urine Total 700 ml 800 ml # Voids 1 Objective HEAD AND NECK: Positive JVD. LUNGS: Decreased breath sounds. CARDIOVASCULAR: Irregular S1 and S2 with no gallop or murmur. Sternotomy scar is intact. ABDOMEN: Soft. EXTREMITIES: 1+ pitting edema. Fracisco Pride MD September 12, 2018 11:32
[2018-09-12 12:00] VITALS: BP 99/62
--- NOTE | 2018-09-12 12:05 | NUR ---
RD ASSESSMENT & RECOMMENDATIONS SEE CARE ACTIVITY FOR COMPLETE ASSESSMENT DAILY ESTIMATED NEEDS: Needs based on Cardiac 86.8kg 25-30 kcals/kg [id number] total kcals 1-1.2 g protein/kg 87-104 g total protein Fluid per MD, on lasix mL/kg total fluid mLs NUTRITION DIAGNOSIS: Altered nutrition related lab values r/t clinical status as evidenced by Low WBC (3.8), low Na (130). CURRENT DIET: Cardiac PO DIET RECOMMENDATIONS: Rec LOW NA DIET ---- ADDITIONAL RECOMMENDATIONS: 1) OBTAIN STANDING DAILY WEIGHTS FOR ACCURACY 2) On lasix, monitor lytes daily/ updated labs 3) Add B-complex x 1 daily 4) Snack in b/w meals
--- NOTE | 2018-09-12 12:18 | NUR ---
*-* INSURANCE *-* UPDATED CLINICALS AND REVIEW HAVE BEEN FAXED TO: DESHAUN YOUNGM: MIGUEL ANGEL P- [phone] F- [phone]...........REVIEW/CLINICAL
--- NOTE | 2018-09-12 14:42 | Pulmonology Progress Note ---
Assessment/Plan Assessment/Plan Pulmonary Progress Note Assessment: Acute exacerbation of congestive heart failure Atrial fibrillation pleural effusion ARF thrombocytopenia cough NSVT Plan intensify cards therapy cards evaluation and clearance stabilize and dc once cleared impression, plan, and exam edited and reviewed in detail care discussed with KATHARINA MOHAMUD Cardiology - for possible ICD Subjective Allergies: Coded Allergies: No Known Allergies (Unverified , 09/06/18) Subjective care noted dc held per cards Objective Vital Signs Noted Laboratory Tests Noted 09/10/18 16:35: Sodium Level 130L, Potassium Level 4.1, Chloride Level 95L, Carbon Dioxide Level 29, Anion Gap 6, Blood Urea Nitrogen 20H, Creatinine 1.2, Estimat Glomerular Filtration Rate > 60, Glucose Level 98, Calcium Level 9.1, Magnesium Level 2.0 Height (Feet): 6 Height (Inches): 1.00 Weight (Pounds): 185 Objective WDWN NAD reduced breath sounds bilaterally without rhonchi or wheeze [id number] without MRG; distant NABS nontender no HSM no CC edema nonfocal Subjective ROS Limited/Unobtainable: No Allergies: Coded Allergies: No Known Allergies (Unverified , 09/06/18) Objective Last 24 Hour Vital Signs Date Time Temp Pulse Resp B/P (MAP) Pulse Ox O2 Delivery O2 Flow Rate FiO2 09/12/18 12:00 95.6 61 20 99/62 (74) 99 09/12/18 12:00 83 09/12/18 09:07 132/74 09/12/18 09:07 69 132/74 09/12/18 09:02 69 20 Nasal Cannula 2.0 28 09/12/18 09:01 Nasal Cannula 2.0 28 09/12/18 09:01 97 Nasal Cannula 2.0 28 09/12/18 09:00 60 09/12/18 09:00 Room Air 09/12/18 08:00 70 09/12/18 08:00 96.2 60 20 132/74 (93) 97 09/12/18 04:00 96.9 60 20 137/89 (105) 97 09/12/18 03:58 77 09/12/18 00:04 70 09/12/18 00:00 97.8 67 20 127/85 (99) 100 09/11/18 21:16 75 145/83 09/11/18 20:00 79 09/11/18 20:00 96.8 75 20 145/83 (103) 98 09/11/18 19:43 96 Room Air 21 09/11/18 19:43 62 18 Room Air 21 09/11/18 19:43 Room Air 21 09/11/18 16:06 97.9 69 19 140/91 (107) 97 09/11/18 16:01 Room Air 09/11/18 16:00 63 Intake and Output 09/11/18 09/12/18 18:59 06:59 Intake Total 1080 ml 480 ml Output Total 700 ml 800 ml Balance 380 ml -320 ml Intake Oral 1080 ml 480 ml Output Urine Total 700 ml 800 ml # Voids 1 Current Medications Medications (Trade) Dose Ordered Sig/Bradford Route PRN Reason Start Time Stop Time Status Last Admin Dose Admin Acetaminophen (Tylenol) 650 mg Q6H PRN ORAL Mild Pain/Temp > 100.5 09/11/18 16:28 10/06/18 16:27 Apixaban (Eliquis) 5 mg BID ORAL 09/12/18 18:00 10/12/18 17:59 Aspirin (Ecotrin) 81 mg DAILY ORAL 09/12/18 09:00 10/07/18 08:59 Carvedilol (Coreg) 12.5 mg EVERY 12 HOURS ORAL 09/11/18 21:00 10/10/18 20:59 09/12/18 09:07 Digoxin (Lanoxin) 0.125 mg DAILY ORAL 09/12/18 09:00 10/10/18 08:59 Diphenhydramine HCl (Benadryl) 25 mg Q6H PRN ORAL Itching 09/11/18 16:28 10/06/18 16:27 Docusate Sodium (Colace) 100 mg TWICE A DAY ORAL 09/11/18 18:00 10/07/18 08:59 09/11/18 17:08 Famotidine (Pepcid) 20 mg TWICE A DAY ORAL 09/11/18 18:00 10/07/18 08:59 09/12/18 09:07 Furosemide (Lasix) 40 mg DAILY ORAL 09/12/18 09:00 10/07/18 08:59 09/12/18 09:08 Guaifenesin (Robitussin) 200 mg Q4H PRN ORAL For Cough 09/11/18 16:31 10/08/18 16:30 Guaifenesin/ Codeine Phosphate (Robitussin with codeine) 10 ml Q4H PRN ORAL For Cough 09/11/18 16:31 10/09/18 16:30 09/11/18 21:16 Ipratropium [place] (Atrovent) 500 mcg Q6HRT PRN HHN Shortness of Breath 09/11/18 19:00 09/15/18 15:44 Losartan Potassium (Cozaar) 25 mg DAILY ORAL 09/12/18 09:00 10/07/18 08:59 09/12/18 09:07 Morphine Sulfate (Morphine Sulfate) 1 mg Q3H PRN IVP Severe Pain (Pain Scale 7-10) 09/11/18 16:30 09/13/18 22:29 Multivitamins (Multivitamins) 1 tab DAILY ORAL 09/12/18 09:00 10/07/18 12:59 09/12/18 09:08 Ondansetron HCl (Zofran) 4 mg Q8H PRN IVP Nausea & Vomiting 09/11/18 16:28 10/06/18 16:27 Potassium Chloride (K-Dur) 20 meq DAILY ORAL 09/12/18 09:00 10/07/18 08:59 09/12/18 09:09 Thiamine HCl (Vitamin B1) 100 mg DAILY ORAL 09/12/18 09:00 10/07/18 12:59 09/12/18 09:08 Zolpidem Tartrate (Ambien) 5 mg HSPRN PRN ORAL Insomnia 09/11/18 21:00 09/17/18 20:59 Haris Kern MD September 12, 2018 14:42
[2018-09-12 16:00] VITALS: BP 116/62
--- NOTE | 2018-09-12 16:18 | NUR ---
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 ACUTE CHF VS: BP 99/62, P 61, T 96.2, RR 20, SpO2 97 On 2.0L O2 NC IS: K-DUR 20meq LASIX 40mg COREG 6.25 mg COZAAR 25mg SDU STATUS
[2018-09-12] MEDS: Eliquis 5mg tablet ORAL SCH (17:24)
--- NOTE | 2018-09-12 19:30 | NUR ---
HAND-OFF: Report given to CHINTAN POSADAS, NO DISTRESS AT THIS TIME.
--- NOTE | 2018-09-12 19:40 | NUR ---
NURSE NOTES: Received Pt is resting on the bed and awake and alert. No sign of acute distress noted. On Tele monitor with A-fib. Denied pain at this time. Iv site intact and no sign of infiltration noted. Placed fall precaution. Will continue to c are plan.
[2018-09-12 20:00] VITALS: BP 127/89
[2018-09-13] VITALS: BP 128/64
--- NOTE | 2018-09-13 04:00 | NUR ---
NURSE NOTES: Got report from Yesika POSADAS. Pt in stable condition. Continue to monitor.
[2018-09-13 04:20] VITALS: BP 105/64
--- NOTE | 2018-09-13 04:25 | NUR ---
HAND-OFF: Report given to KATHARINA Oakley. Pt is resting on the bed and no sign of acute distress noted.
--- NOTE | 2018-09-13 07:11 | NUR ---
HAND-OFF: Report given to Nora ROTH. Endorsed plan of care.
--- NOTE | 2018-09-13 07:15 | NUR ---
NURSE NOTES: Received report from KATHARINA Oakley. Patient is resting in bed, in stable condition. Alert and oriented x4. No signs and symptoms of acute distress noted at this time. Breathing unlabored in room air. Bed in lowest position with two side rails up, break engaged. Urinal at bed side. Bed side table and call light within reach. Will follow plan of care.
--- NOTE | 2018-09-13 07:53 | General Progress Note ---
Assessment/Plan Assessment/Plan: Acute exacerbation of congestive heart failure Atrial fibrillation pleural effusion ARF thrombocytopenia cough NSVT cocaine + PLAN cards therapy cards evaluation and clearance stabilize and dc once cleared by cardiology impression, plan, and exam edited and reviewed in detail care discussed with RN Subjective Allergies: Coded Allergies: No Known Allergies (Unverified , 09/06/18) Subjective care noted dc held per cards per EP, no AICD planned Objective Last 24 Hour Vital Signs Date Time Temp Pulse Resp B/P (MAP) Pulse Ox O2 Delivery O2 Flow Rate FiO2 09/13/18 07:27 97 Nasal Cannula 2.0 28 09/13/18 07:27 60 16 Nasal Cannula 28 09/13/18 07:27 Nasal Cannula 2.0 28 09/13/18 04:20 98.1 58 16 105/64 (78) 97 09/13/18 04:00 69 09/13/18 00:00 66 09/13/18 00:00 97.6 60 20 128/64 (85) 100 09/12/18 21:27 78 127/89 09/12/18 21:00 Room Air 09/12/18 20:56 98 Nasal Cannula 2.0 28 09/12/18 20:56 Nasal Cannula 2.0 28 09/12/18 20:55 56 18 Nasal Cannula 2.0 28 09/12/18 20:00 98.2 56 20 127/89 (102) 99 09/12/18 20:00 76 09/12/18 16:00 62 09/12/18 16:00 99.6 62 20 116/62 (80) 99 09/12/18 12:00 95.6 61 20 99/62 (74) 99 09/12/18 12:00 83 09/12/18 09:07 132/74 09/12/18 09:07 69 132/74 09/12/18 09:02 69 20 Nasal Cannula 2.0 28 09/12/18 09:01 Nasal Cannula 2.0 28 09/12/18 09:01 97 Nasal Cannula 2.0 28 09/12/18 09:00 60 09/12/18 09:00 Room Air 09/12/18 08:00 70 09/12/18 08:00 96.2 60 20 132/74 (93) 97 Intake and Output 09/12/18 09/13/18 19:00 07:00 Intake Total 380 ml 240 ml Output Total 400 ml 400 ml Balance -20 ml -160 ml Intake Oral 380 ml 240 ml Output Urine Total 400 ml 400 ml Height (Feet): 6 Height (Inches): 1.00 Weight (Pounds): 190 Objective WDWN NAD reduced breath sounds bilaterally without rhonchi or wheeze [id number] without MRG; distant NABS nontender no HSM no CC edema nonfocal Bebeto Dillon MD September 13, 2018 07:53
[2018-09-13 08:01] VITALS: BP 127/76
[2018-09-13] MEDS: Thiamine 100mg tab ORAL SCH (08:34)
[2018-09-13] MEDS: Eliquis 5mg tablet ORAL SCH (08:35)
[2018-09-13] MEDS: Losartan 25mg tab ORAL SCH (08:35)
[2018-09-13] MEDS: Aspirin EC 81mg tab ORAL SCH (08:35)
[2018-09-13] MEDS: Docusate 100mg cap ORAL SCH (08:35)
[2018-09-13] MEDS: Furosemide 40mg tab ORAL SCH (08:36)
[2018-09-13] MEDS: Digoxin 0.125mg tab ORAL SCH (08:36)
[2018-09-13] MEDS: Carvedilol 12.5mg tab ORAL SCH (08:36)
[2018-09-13 12:00] VITALS: BP 117/71
--- NOTE | 2018-09-13 15:20 | Cardiac Electrophysiology PN ---
Assessment/Plan Assessment/Plan 1. Nonsustained ventricular tachycardia in a patient with history of postinfarct cardiomyopathy, EF of only 20%, and history of bypass graft. Reviewed records from [facility] from 05/2018 and 08/2018. EF was 20% then also. However patient was noncompliant with active cocaine use up to 2 weeks ago which is a contraindication for ICD. 2. Atrial fibrillation with rapid ventricular response. On digoxin 0.125 mg daily,Coreg 12.5 mg bid and Eliquis b.i.d. 3. Severe postinfarct cardiomyopathy, on Cozaar 25 daily, Lasix 40 daily, digoxin and Coreg per Dr Velasquez 4. Coronary artery disease with history of coronary artery bypass graft. evaluation per Dr. Velasquez. ONEIDA RN Subjective Subjective Records from [facility] EF was 20% 06/02/18 as well as 08/30/18. ICD was not done for noncompliance and active cocaine use No CP or SOB. DC planning in progress Objective Last 24 Hour Vital Signs Date Time Temp Pulse Resp B/P (MAP) Pulse Ox O2 Delivery O2 Flow Rate FiO2 09/13/18 09:00 Room Air 09/13/18 08:36 81 09/13/18 08:36 81 127/76 09/13/18 08:35 127/76 09/13/18 08:01 97.0 81 20 127/76 (93) 100 09/13/18 08:00 72 09/13/18 07:27 97 Nasal Cannula 2.0 28 09/13/18 07:27 60 16 Nasal Cannula 28 09/13/18 07:27 Nasal Cannula 2.0 28 09/13/18 04:20 98.1 58 16 105/64 (78) 97 09/13/18 04:00 69 09/13/18 00:00 66 09/13/18 00:00 97.6 60 20 128/64 (85) 100 09/12/18 21:27 78 127/89 09/12/18 21:00 Room Air 09/12/18 20:56 98 Nasal Cannula 2.0 28 09/12/18 20:56 Nasal Cannula 2.0 28 09/12/18 20:55 56 18 Nasal Cannula 2.0 28 09/12/18 20:00 98.2 56 20 127/89 (102) 99 09/12/18 20:00 76 09/12/18 16:00 62 09/12/18 16:00 99.6 62 20 116/62 (80) 99 Intake and Output 09/12/18 09/13/18 18:59 06:59 Intake Total 380 ml 240 ml Output Total 400 ml 400 ml Balance -20 ml -160 ml Intake Oral 380 ml 240 ml Output Urine Total 400 ml 400 ml Objective HEAD AND NECK: Positive JVD. LUNGS: Decreased breath sounds. CARDIOVASCULAR: Irregular S1 and S2 with no gallop or murmur. Sternotomy scar is intact. ABDOMEN: Soft. EXTREMITIES: 1+ pitting edema. Fracisco Pride MD September 13, 2018 15:19
[2018-09-13 16:00] VITALS: BP 135/58
--- NOTE | 2018-09-13 16:15 | NUR ---
NURSE NOTES: Patient discharged home, self care per Dr. Dillon's order. All discharge instruction explained to patient, verbalized understanding. Patient discharged from IV, ID removed and placed in shredder. Heart monitor removed and returned to quality assurance monitor body. Patient needs to continue with home medications and he received new prescription. Patient discharged in stable condition and went home with his brother and private car.
--- NOTE | 2018-09-15 10:31 | Discharge Summary ---
Discharge Summary Discharge Summary _ DATE OF ADMISSION: 09/06/2018 DATE OF DISCHARGE: 09/13/2018 DISCHARGED BY: Dr. Dillon REASON FOR ADMISSION: 58 years old male with past medical history of hypertension, congestive heart failure, CAD , DC with post infarct cardiomyopathy, history of bypass graft, was brought to the emergency department with shortness of breath. Patient reported increased shortness of breath over the last 3 days. Patient was recently on August 31 discharged from [facility]. Patient was discharged on 80 mg of Lasix. Patient also noted to be on anticoagulation with Eliquis. Vital signs revealed tachycardia 140-150 , no fevers , tachypnea 24, blood pressure stable. Laboratory work-up revealed no leukocytosis , hemoglobin 12.9 , hematocrit 40.8 , platelet count 127. BUN 24, creatinine 1.7. Troponin negative. pro BNP 6247. EKG revealed atrial fibrillation with rapid ventricular response and bundle branch block. In ED patient received digoxin for rate control and Lasix. Patient was given dose of aspirin. Urine toxicology screen was positive for marijuana. Chest x-ray demonstrated marked cardiomegaly and small right pleural effusion, otherwise no acute cardiopulmonary process. Patient subsequently was admitted for further management . CONSULTANTS: insole doubler Dr. Velasquez cardiac automobile service station manager Dr. Kincaid [facility]: Patient admitted to telemetry floor . Cardiology and cardiac automobile service station manager consults were requested. Echocardiogram revealed severe global left ventricular hypokinesis. Mild diastolic septal flattening of the LV suggestive of RV volume overload. Left ventricular ejection fraction estimated to be 20 to 25%. No evidence of left ventricular hypertrophy. No evidence of pericardial effusion. Right ventricular systolic pressure of 46 consistent with moderate pulmonary hypertension. Repeated troponin x2 were negative. Patient remained in atrial fibrillation. Patient was continued on anticoagulation with Eliquis and antiplatelet therapy with aspirin. Measurement Psychologist recommended to continue with guideline directed medical therapy including beta-kaylene, ARB, diuretic and digoxin. Rate was controlled with beta-kaylene and digoxin. Atrial fibrillation likely permanent. Anticoagulation was continued with Eliquis . Patient noted to have nonsustained ventricular tachycardia . Magnesium sulfate was given and magnesium level stable. AICD initially was planned. Patient started on anticoagulation with Lovenox and Eliquis was stopped at that time. However, patient apparently was actively using cocaine 2 weeks ago. AICD was canceled due to noncompliance and active cocaine use. Patient restarted on Eliquis. Internal Grinder Set Up Operator reviewed records from [facility] from May and August 2018 , ejection fraction was 20% as well, no change from that time. Patient denied chest pain or shortness of breath. Patient was counseled on abstinence from illicit street drugs and compliance with current medication regimen. Platelet count was closely monitored and remained at baseline. Upon admission 127 , upon discharge 125. Renal parameters and electrolytes were closely monitored, electrolytes further corrected as needed. Creatinine from 1.7 down to 1.2 prior to discharge. Patient clinically stabilized and was ready for discharge. FINAL DIAGNOSES: Acute exacerbation of congestive heart failure , systolic Severe postinfarct cardiomyopathy with ejection fraction 20% Atrial fibrillation with rapid ventricular response Coronary artery disease with history of coronary artery bypass graft Nonsustained ventricular tachycardia Active cocaine use Acute renal failure -resolved Thrombocytopenia -stable Right pleural effusion -small DISCHARGE MEDICATIONS: See Medication Reconciliation list. DISCHARGE INSTRUCTIONS: Patient was discharged home . Follow up with primary care provider in one week. I have been assigned to dictate discharge summary for this account. I was not involved in the patient's management. Marie Vasquez NP September 15, 2018 10:30
== END 2018-09-13 16:16 | disposition home or self-care (01) | DRG 194 ==
LOC: EDBD 17:46 → EMR 18:09 → 2W 18:24 → EDBEDREQ 18:53 → 2E 09-11 15:55
DX: I11.0 Hypertensive heart disease with heart failure (principal); I47.2 Ventricular tachycardia; N17.9 Acute kidney failure, unspecified; D69.6 Thrombocytopenia, unspecified; I50.23 Acute on chronic systolic (congestive) heart failure; I48.91 Unspecified atrial fibrillation; I25.10 Atherosclerotic heart disease of native coronary artery without angina pectoris; I25.2 Old myocardial infarction; I42.8 Other cardiomyopathies; Z95.1 Presence of aortocoronary bypass graft; Z79.82 Long term (current) use of aspirin; I42.0 Dilated cardiomyopathy; F14.10 Cocaine abuse, uncomplicated
CPT/HCPCS: 36415; 71045; 80048; 80053; 80162; 80307; 82248; 82550; 82553; 83605; 83735; 83880; 84484; 85025; 85379; 87040; 87081; 87086; 93005; 93306; 94640; 94664; 94760; 99285; J7620; J8499